=== PATIENT | male | born 1960 ===

== ENCOUNTER 2025-07-21 02:37 | Emergency (ER) | payer BC, MEDICARE, SELFPAY ==
--- OUTSIDE RECORDS SUMMARY | 2025-06-29 10:46 | XMS_ITS | Encounter Summary ---
Author Organization [facility] Address [address] [place] [address] Care Team Providers Care Commercial Loan Closer Name Role Phone Jax Bennett M.D. Primary Care arielle Encounter Details Date Type Department Care Team (Latest Contact Info) Description 06/29/2025 10:46 AM CDT - 06/29/2025 11:59 PM CDT Hospital Encounter Department of Laboratory Medicine in [place], [place] [address] [phone] Rand Goodwin, DANILOS, P.A.-C., P.A. 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 0 atorvastatin (Lipitor) 80 mg tabletIndications: Hyperlipidemia Mixed Take 1 tablet (80 mg total) by mouth daily. 90 tablet 3 5 04/02/20 26 blood sugar diagnostic stripsIndications: Compressor Assembler Use Of Insulin Active ([facility]),Diabetes Mellitus Type 1 Hyperglycemia ([facility]) USE 1 STRIP TO CHECK GLUCOSE THREE TIMES DAILY 300 each 1 2 blood-glucose meter,continuous (FreeStyle Tray 3 Met[place])Indications :Diabetes Mellitus Type 2 With Diabetic Chronic Kidney Disease ([facility]),Compressor Assembler Use Of Insulin Active ([facility]) 1 each (1 Device total) as directed. 1 each 5 blood-glucose sensor (FreeStyle Tray 3 Plus Sensor) deviceIndications: Diabetes Mellitus Type 2 With Diabetic Chronic Kidney Disease ([facility]),Senior Care Use Of Insulin Active ([facility]) 1 each (1 Device total) every 15 [...] Type 2 With Diabetic Chronic Kidney Disease (HCC),Senior Care Use Of Insulin Active (HCC) Inject 68 [...] Type 2 With Diabetic Chronic Kidney Disease (HCC),Senior Care Use Of Insulin Active ([facility]) INJECT 28 UNITS SUBCUTANEOUSLY THREE TIMES DAILY 5-10 MINUTES BEFORE MEALS 30 mL 5 07/07/20 25 documented as of this encounter Plan of Treatment Upcoming Encounters Date Type Department Care Team (Late st Contact Info) Description 07/22/2025 9:30 AM CDT Appointment Department of Radiology in [place], [place] [address] [place] [phone] Jax Bennett M.B.B.S., [place]iko [address] [place] [phone] Discharge Disposition: Home or Self Care 08/25/2025 2:00 PM CDT Office Visit Department of Endocrinology in [place], [place] [address] [phone] Rand Pop [facility], P.A.-C., P.A. [address], [place] [phone] documented as of this encounter Procedures Procedure [...] M.D. LAB BLOOD ADD-O N Final Result [facility] [address] [place] [address], [facility] OWAT [facility] [place] [address] [place] [address] * (ABNORMAL) Lipid Panel (06/29/2025 10:54 AM [...] ----ADDITIONAL INFORMATION---- LDL cholesterol calculated using the Car/NIH equation. Cholesterol, HDL 37(L) >=40 mg/dL 06/29/2025 [...] P.A.-C., P.A. LAB BLOOD ADD-ON Final Result [facility] [address] [place] [address], [place] OW[place] [facility] in [place] [address] [place] [address] * (ABNORMAL) Basic Metabolic Panel (06/29/2025 10:54 [...] AM CDT 06/29/2025 10:56 AM CDT [facility].A. LAB BLOOD ADD-ON Final Result [facility] [address] [place] [address], [facility] OWAT [facility] [place] [facility] [place] [address] [place] [address] * (ABNORMAL) Hemoglobin A1c (06/29/2025 10:54 AM [...] AM CDT 06/29/2025 10:56 AM CDT Rand DIAMOND, P.A.-C., P.A. LAB BLOOD ADD-ON Final Result [facility] [address] [place] [address], [facility] OWAT [facility] [place] [facility] [place] [address] [place] [address] documented in this encounter Visit Diagnoses Diagnosis [...] documented as of this encounter Care Teams Commercial Loan Closer Relationship Specialty Start Date End Date Jax Bennett M.B.B.S., MMary Jo. [address] [place] [phone] PCP - General Family Medicine 01/03/23 documented as of this encounter
--- OUTSIDE RECORDS SUMMARY | 2025-06-29 10:46 | XMS_ITS | Encounter Summary ---
Author Organization [facility] Address [address] [place] [address] Care Team Providers Care Travel Registered Nurse Pacu Name Role Phone Jax Bennett M.D. Primary Care P [facility] Encounter Details Date Type Department Care Team (Latest Contact Info) Description 06/29/2025 10:46 AM CDT - 06/29/2025 11:59 PM CDT Hospital Encounter Department of Laboratory Medicine in [place], [place] [address] [place] [phone] Jax Bennett M.B.B.S., MMary Jo. [address] [place] [address] [place] [phone] Diabetes Mellitus Type 1 Hyperglycemia (HCC) Discharge Disposition: Home or Self Care Social History Tobacco Use Types Packs/Day Years Used Date Smoking Tobacco: Former Smokeless Tobacco: Never Alcohol Use Standard Drinks/Week Comments Not Currently 0 (1 standard drink = 0.6 oz pur e alcohol) 2 beer every couple months. 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 0 atorvastatin (Lipitor) 80 mg tabletIndications: Hyperlipidemia Mixed Take 1 tablet (80 mg total) by mouth daily. 90 tablet 3 5 04/02/20 26 blood sugar diagnostic stripsIndications: Custodial Use Of Insulin Active ([facility]),Diabetes Mellitus Type 1 Hyperglycemia ([facility]) USE 1 STRIP TO CHECK GLUCOSE THREE TIMES DAILY 300 each 1 2 blood-glucose meter,continuous (FreeStyle Tray 3 [place])Indications :Diabetes Mellitus Type 2 With Diabetic Chronic Kidney Disease ([facility]),Motorized Squad Commanding Officer Use Of Insulin Active ([facility]) 1 each (1 Device total) as directed. 1 each 5 blood-glucose sensor (FreeStyle Tray 3 Plus Sensor) deviceIndications: Diabetes Mellitus Type 2 With Diabetic Chronic Kidney Disease ([facility]),Motorized Squad Commanding Officer Use Of Insulin Active ([facility]) 1 each (1 Device total) every 15 [...] Type 2 With Diabetic Chronic Kidney Disease ([facility]),Custodial Use Of Insulin Active ([facility]) Inject 68 Units under the skin every [...] Type 2 With Diabetic Chronic Kidney Disease (HCC),Custodial Use Of Insulin Active (HCC) INJECT 28 UNITS SUBCUTANEOUSLY THREE TIMES DAILY 5-10 MINUTES BEFORE MEALS 30 mL 5 07/07/20 25 documented as of this encounter Plan of Treatment Upcoming Encounters Date Type Department Care Team (Late st Contact Info) Description 07/22/2025 9:30 AM CDT Appointment Department of Radiology in [address] [phone] Jax Bennett M.B.BИванSИван, M.Hunter [address] [place] [phone] Discharge Disposition: Home or Self Care 08/25/2025 2:00 PM CDT Office Visit Department of Endocrinology in [place], [place] [address] [phone] Rand Pop [facility], P.A.-C., P.A. [address] [phone] documented as of this encounter Procedures Procedure Name Priority Date/Time Associated Diagnosis Comments ALBUMIN, RANDOM, U Routine 06/29/2025 10 :51 AM CDT Diabetes Mellitus Type 1 Hyperglycemia (HCC) documented in this encounter Results * (ABNORMAL) Albumin, Random, Urine (06/29/2025 10:51 AM CDT) Microalbumin <12.0 mg/L 06/29/2025 11:44 AM CDT OWAT Comment:If clinically indica wendie, contact the lab for additional testing. Creatinine 16 mg/dL 06/29/2025 11:44 AM CDT [facility] Albumin/Creatinine Ratio <75(H) <17 mg/g 06/29/2025 11:44 AM CDT OW[facility] Comment: This ratio may not correspond with the reference range because one or both of the values used to calculate the ratio was above or below the quantification limits. Urine (Urine, Midstream) 06/29/2025 10:51 AM CDT 06/29/2025 11:06 AM CDT us Jax Hansen M.D. LAB URINE ORDER SHALINI Final Result Performing Organization Address City/State/[facility] Co de Phone Number [facility] [address], [place] [address], [facility] OWAT [facility] [place] [address], [place] [address] documented in this encounter Visit Diagnoses Diagnosis Diabetes Mellitus Type 1 Hyperglycemia (HCC) documented in this encounter Additional Health Concerns Assessment Noted Time PHQ-9 Depression Total Score: 0 03/07/20 17 4:21 PM CDT documented as of this encounter Care Teams Travel Registered Nurse Pacu Relationship Specialty Start Date End Date Jax Bennett M.B.B.S., M.D. [address] [place] [phone] PCP - General Family Medicine 01/03/23 documented as of this encounter
--- OUTSIDE RECORDS SUMMARY | 2025-06-30 14:30 | XMS_ITS | Encounter Summary ---
Author Organization [facility] Address [address] [place] [address] Care Team Providers Care Tree Surgeon Helper Name Role Phone Jax Bennett M.D. [facility] Reason for Referral * Outpatient (Routine) - Authorized Specialty Diagnoses / Procedures Referred By Matias easley Referred To Contact Endocrinology Diagnoses Diabetes Mellitus Type 2 With Diabetic Chronic Kidney Disease (HCC) Rand Pop MPAS, P.A.-C., P.A. [address] [phone] Phone: tel: fax: [facility] Referral ID Status Reason Start Date Expiration Date V isits Requested Visits Authorized [id number] Authorized 06/30/2025 12/30/2026 1 1 Scheduling Instructions 30 min face to face--> OK to use urgent slot * Medication Prior Authorization - Closed Specialty Diagnoses / Procedures Referred By Matias easley Referred To Contact Diagnoses Diabetes Mellitus Type 2 With Diabetic Chronic Kidney Disease (HCC) Rand Pop MPAS, P.A.-C., P.A. [address] [address] Phone: tel: fax: Referral ID Status Reason Start Date Expiration Date Visits Re quested Visits Authorized [id number] Closed 1 1 Reason for Visit * Reason Comments Diabetes * Outpatient (Routine) - Closed Specialty Diagnoses / Procedures Referred By Matias t Referred To Contact Endocrinology Diagnoses Diabetes Mellitus Type 2 With Diabetic Chronic Kidney Disease (HCC) Fpc Use Of Insulin Active (HCC) Rand Pop MPAS, P.A.-C., P.A. [address] [phone] Phone: tel: fax: [facility] Referral ID Status Reason Start Date Expiration Date Visits Re quested Visits Authorized [id number] Closed 02/10/2025 08/12/2026 1 1 Encounter Details Date Type Department Care Team (Latest Contact Info) Description 06/30/2025 2:30 PM CDT Office Visit Department of Endocrinology in [place], [place] [address] [phone] Rand Goodwin MPAS, P.A.-Betty., P.A. 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 - 06/30/2025 2:30 PM CDT Reduce Semglee insulin to 62 units once daily- every morning. For now, continue 25 units Novolog 10 minutes before eating. Change to Metformin XR to help reduce diarrhea. --> week 1: 1 tablet once daily; --> week 2: 2 tablets once daily; --> week 3: 3 tablets once daily; --> week 4: 4 tablets once daily. Schedule with Rand on 08/25 at [address] Bennett to review left leg pain. documented in this encounter Progress Notes * Rand Pop MPAS, P.A.-C., P.A. - 06/30/2025 2:30 PM CDT SUBJECTIVE CHIEF COMPLAINT Chief Complaint Patient presents with Diabetes HISTORY OF PRESENT ILLNESS Patient presents today for a evaluation and treatment of diabetes mellitus type 2. - Date of dx: 2005 - Family history of diabetes: 2 brothers with diabetes; mother- diabetes - previously seen by Dr. Barcenas with an endocrinology on 06/06/2023. --> history of being diagnosed as a type 1 insulin-requiring diabetic, however there is no clinical evidence to support this diagnosis. Diagnosis modify to type 2 diabetes. Lab Results Component Value Date HGBA1C 8.3 (H) 06/29/2025 Diabetes related medication: - Metformin 1000 mg twice daily- occ diarrhea-occurs at least twice weekly. - NovoLog insulin- 25 units before meals; - Semglee insulin (insulin glargine-yfgn)- 68 units in the morning- improved compliance. - Jardiance 10 mg once daily. Questions if he will be able to continue to take this after intermediate secondary to cost, and limited income. - Patient had previously been on: Jardiance- stopped r/t cost. - History of pancreatitis: none. Lab Results Component Value Date CHOL 187 06/29/2025 Lab Results Component Value Date HDL 37 (L) 06/29/2025 Lab Results Component Value Date LDLCALC 98 06/29/2025 Lab Results Component Value Date TRIG 305 (H) 06/29/2025 Lab Results Component Value Date TTLCHOLHDLRT 4.00 03/06/2017 - History of pancreatic cancer: none. - History of medullary thyroid cancer: self: none; family: none. - History of MEN (multiple endocrine neoplasia-2): none. - History of recurrent UTIs: none. Blood glucose monitoring: - Frequency: Tray 3 - 14 day review- reader - CGM use: 94% - avg b mg/dL; - GMI: 8.7%; TIME IN RANGE: - high: 39% - in range: 57%; - low: 4%. Blood glucose patterns: - Some postprandial hypoglycemia -Occurring more frequently while at work. Hypoglycemia: - Hypoglycemia: yes. Frequency of hypoglycemia: 0% over past 2 weeks. - Patient does have symptoms of hypoglycemia. - Symptoms of hypoglycemia include: weak. - Hypoglycemic treatment: juice/food. - Glucagon available: None. - History of hypoglycemia that needed treatment assistance: never. Complication/Comorbidity management: - Complications: CKD, retinopathy, cataracts. Microalbuminuria. - Aspirin therapy: 81 mg aspirin. - Statin therapy: atorvastatin. - CELIA/Arb therapy: CELIA inhibitor-lisinopril. - Last diabetic eye exam: 03/05/2025- mild retinopathy and cataracts - Last Diabetic foot exam/ Monofilament: 04/02/2025- with PCP. - Daily Self Foot Exam: no. Patient has not noted any signs of erythema or ulceration. he has not had any numbness in his feet that he is aware of. - Patient describes his mood as stable. Social history: - Patient does not use tobacco products. - Alcohol intake: none. - Last Certified Oil And Gas Drafter Visit: 04/16/2024. - Last Cut Out Marker Visit: 05/21/2023. Current Diet: 3 meals daily. - breakfast is at 9:30 a.m.; lunch at 4 p.m.; supper between 6-7 p.m. - Beverage intake: diet pepsi; water. Current Exercise: work- walks all day. Work: [employer]: 3 a.m.-3 p.m. 5 days weekly Retiring when turns 65. Retiring as of tomorrow, 07/01/2025. Sleep: 8 p.m. to 2 a.m. Marital status: . passed 09/2022. - no biological children. MEDICATIONS Current Outpatient Medications Medication Sig aspirin [address] tablet Take 1 tablet by mouth daily. atorvastatin (Lipitor) 80 mg tablet Take 1 tablet (80 mg total) by mouth daily. blood sugar diagnostic strips USE 1 STRIP TO CHECK GLUCOSE THREE TIMES DAILY blood-glucose meter,continuous (FreeStyle Tray 3 [place]) 1 each (1 Device total) as directed. blood-glucose sensor (FreeStyle Tray 3 Plus Sensor) device 1 each (1 Device total) every 15 (fifteen) days empagliflozin (Jardiance) 10 mg tablet Take 1 tablet (10 mg total) by mouth daily before morning meal Indications: decreased kidney function, type 2 diabetes mellitus. hydroCHLOROthiazide 12.5 mg tablet Take 1 tablet (12.5 mg total) by mouth daily. insulin glargine-yfgn (Semglee,insulin glarg-yfgn,Pen) 100 unit/mL (3 mL) pen Inject 62 Units underthe skin every morning. lisinopriL 20 mg tablet Take 1 tablet (20 mg total) by mouth daily. miscellaneous medical supply kit NovoFine 30 Disposabl NDL See Instructions, Inject 4 times daily; E10.65; Z79.4, 150 each, 3 Refill(s) NovoLOG Flexpen U-100 Insulin 100 unit/mL (3 mL) pen INJECT 28 UNITS SUBCUTANEOUSLY THREE TIMES DAILY 5-10 MINUTES BEFORE MEALS tadalafiL (CIALIS) 10 mg tablet Take 1 tablet (10 mg total) by mouth daily as needed for erectile dysfunction. metFORMIN XR (Glucophage-XR) 500 mg 24 hr tablet Take 4 tablets (2,000 mg total) by mouth daily with morning meal. Week 1: take 1 tablet daily; Week 2: take 2 tablets daily; Week 3: take 3 tablets daily; Week 4: take 4 tablets daily. REVIEW OF SYSTEMS Skin: - Negative for skin rash. Eyes: - Negative for visual problems. Gastrointestinal: - Negative for abdominal (belly) pain or cramping, diarrhea, nausea and vomiting. Neurological: - Negative for numbness or shooting pain in hands, arms, legs, or feet. HISTORY REVIEW: The following portions of the patient's history were reviewed: allergies, current medications, family history, social history, medical history, surgical history and problem list OBJECTIVE PHYSICAL EXAM BP 130/77 (BP Location: Right arm, Patient Position: Sitting, Cuff Size: Regular) Pulse 66 Wt 75.9 kg BMI 26.20 kg/m?? GENERAL: Well developed, well nourished. No apparent distress. Appearance, behavior, and speech areappropriate. SKIN: No rash on exposed skin. MUSCULOSKELETAL: Gait normal. NEUROLOGICAL: Mental Status: Alert and oriented times 3, relaxed, and cooperative. Normal affect. DIAGNOSTICS Wt Readings from Last 3 Encounters: 06/30/25 75.9 kg 04/02/25 74.1 kg 02/10/25 79 kg Most Recent Diabetic Monitoring Labs: Last A1c: Lab Results Component Value Date HGBA1C 8.3 (H) 06/29/2025 Last urine microalbumin: Lab Results Component Value Date UMCROALBCONC <12.0 06/29/2025 CREATININEUR 16 06/29/2025 ALBCREARATIO <75 (H) 06/29/2025 Last lipid panel: Lab Results Component Value Date CHOL 187 06/29/2025 Lab Results Component Value Date HDL 37 (L) 06/29/2025 Lab Results Component Value Date LDLCALC 98 06/29/2025 Lab Results Component Value Date TRIG 305 (H) 06/29/2025 Lab Results Component Value Date TTLCHOLHDLRT 4.00 03/06/2017 Last Creatinine: Lab Results Component Value Date CREATININE 1.13 06/29/2025 Lab Results Component Value Date EGFR 72 06/29/2025 EGFRNONBLKAA 74 06/26/2021 EGFRBLKAA 85 06/26/2021 ASSESSMENT / PLAN #1 Diabetes Mellitus Type 2 With Diabetic Chronic Kidney Disease (HCC) - metFORMIN XR (Glucophage-XR) 500 mg 24 hr tablet; Take 4 tablets (2,000 mg total) by mouth daily with morning meal. 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 - patient is now taking basal insulin in the morning, and notes increased compliance. - Some overnight hypoglycemia, consequently will reduce basal insulin dose. - Patient will be retiring as of tomorrow, 07/01/2025. Anticipate significant change in schedule as well as eating habits. No change to NovoLog dosing at present time, but will see patient back in approximately 6-8 weeks to review glycemic control. At that time anticipate need to modify insulin doses given change in lifestyle. - Currently taking Jardiance 10 mg daily, however patient anticipates discontinuation secondary to high cost. - Advised 64-80 oz of water daily. - Stressed the importance of taking NovoLog prior to the start of his meals-aim for 5-15 minutes prior to eating. -patient notes diarrhea at least twice weekly, which he reports is problematic. Will change to metformin XR. -advised annual eye exams. Onychomycosis: - Podiatry consult previously placed. Plan: Reduce Semglee insulin to 62 units once daily- every morning. For now, continue 25 units Novolog 10 minutes before eating. Change to Metformin XR to help reduce diarrhea. --> week 1: 1 tablet once daily; --> week 2: 2 tablets once daily; --> week 3: 3 tablets once daily; --> week 4: 4 tablets once daily. Schedule with Rand on 08/25 at [address] Bennett to review left leg pain. - Self-monitoring of blood glucose: Continue FreeStyle Tray 3+ -Goal hemoglobin A1C: less than 7, without hypoglycemia. -Goal capillary plasma glucose: 90-140 fasting and preprandial; 2 hour peak postprandial blood glucose goal: Less than 140 mg/dL. -Frequency of hemoglobin A1C measurement: Every 3 months. Next due 09/29/2025. - Certified Oil And Gas Drafter visit: As needed. - Next Diabetic Follow-up Visit: 6-8 weeks. Tobacco cessation: Does not use tobacco products. Recommend daily physical activity with a goal of 30 minutes of moderate intensity activity most days per week. Consume a consistent well balanced diet and no intake of sweetened beverages. Inspect feet daily and have annual diabetic eye exam. Check lipid panel, creatinine, and urine microalbumin nisreen ually, more frequently if levels not at goal. Patient states he understands and agrees with current care plan. No learning barriers noted. No further questions today. Total time: 34 minutes with time also spent in chart review and lab review. DARA Marcos, P.A.-C., P.A. Patient Instructions Reduce Semglee insulin to 62 units once daily- every morning. For now, continue 25 units Novolog 10 minutes before eating. Change to Metformin XR to help reduce diarrhea. --> week 1: 1 tablet once daily; --> week 2: 2 tablets once daily; --> week 3: 3 tablets once daily; --> week 4: 4 tablets once daily. Schedule with Rand on 08/25 at [address] Bennett to review left leg pain. documented in this encounter Plan of Treatment Upcoming Encounters Date Type Department Care Team (Late st Contact Info) Description 07/22/2025 9:30 AM CDT Appointment Department of Radiology in [address] [phone] Jax Bennett M.B.B.S., M.D. [address] [place] [phone] Discharge Disposition: Home or Self Care 08/25/2025 2:00 PM CDT Office Visit Department of Endocrinology in [place], [place] [address] [phone] Rand Pop MPAS, Daniel., P.A. 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 [address] [place] [address] [place] [phone] PCP - General Family Medicine 01/03/23 documented as of this encounter
--- OUTSIDE RECORDS SUMMARY | 2025-07-21 02:39 | XMS_ITS | Encounter Summary ---
Author Organization [facility] Address [address] [place] [address] Care Team Providers Care Charge Coordinator Name Role Phone Jax Bennett M.D. [facility] Reason for Visit * Reason Comments Med Refill Encounter Details Date Type Department Care Team (Late st Contact Info) Description 07/01/2025 Refill Department of Endocrinology in [place], [place] [address] [phone] Rand Pop, [facility], P.A.-C., P.A. [address] [phone] Med Refill Social History Tobacco Use Types Packs/Day Years Used Date Smoking Tobacco: Former Smokeless Tobacco: Never Alcohol Use Standard Drinks/Week Comments Not Currently 0 (1 standard drink = 0.6 oz pur e alcohol) 2 beer every couple months. 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 [address] [place] [address] Discharge Disposition: Home or Self Care 08/25/2025 2:00 PM CDT Office Visit Department of Endocrinology in [place], [place] [address] [phone] Rand Pop MPAS, P.A.-C., P.A. [address] [phone] documented as of this encounter Visit Diagnoses Diagnosis Diabetes Mellitus Type 2 With Diabetic Chronic Kidney Disease (HCC) Tiger Machine Operator Use Of Insulin Active (HCC) documented in this encounter Additional Health Concerns Assessment Noted Time PHQ-9 Depression Total Score: 0 03/07/20 17 4:21 PM CDT documented as of this encounter Care Teams Charge Coordinator Relationship Specialty Start Date End Date Jax Bennett M.B.BИванSИван, M.Jennifer. [address] [facility] [place] [phone] PCP - General Family Medicine 01/03/23 documented as of this encounter
--- OUTSIDE RECORDS SUMMARY | 2025-07-21 02:39 | XMS_ITS ---
Author Organization [facility] Address [address] [place] [address] Phone [email or web address] Care Team Providers Care Music Researcher Name Role Phone Unavailable Primary Care Provider Unavailabl e General Care Management Program Status:Closed (Closed) Start date:07/09/2024 End date:07/06/2025 Close reason:Created in error Continued Care and Services Coordination
--- OUTSIDE RECORDS SUMMARY | 2025-07-21 02:39 | XMS_ITS | Encounter Summary ---
Author Organization [facility] Address [address] [place] [address] Care Team Providers Care Legal Service Specialist Name Role Phone Jax Bennett M.D. [facility] Encounter Details Date Type Department Care Team (Late st Contact Info) Description 06/29/2025 Results Follow-Up [facility], Second Floor [address] [place] [address] Jax Bennett M.B.B.S., M.D. [address] [facility] [place] [phone] Albumin, Random, Urine Social History Tobacco Use Types Packs/Day Years Used Date Smoking Tobacco: Former Smokeless Tobacco: Never Alcohol Use Standard Drinks/Week Comments Not Currently 0 (1 standard drink = 0.6 oz pur e alcohol) 2 beer every couple months. 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 Patient is on lisinopril which is appropriate treatment. The goal be better blood sugar control. Please continue with lisinopril. documented in this encounter Plan of Treatment Upcoming Encounters Date Type Department Care Team (Late st Contact Info) Description 07/22/2025 9:30 AM CDT Appointment Department of Radiology in [place], [place] [address] [place] [address] Jax Bennett M.B.B.S., M.D. [address] [place] [address] Discharge Disposition: Home or Self Care 08/25/2025 2:00 PM CDT Office Visit Department of Endocrinology in [place], [place] [address] [phone] Rand Pop, [facility] [address] [phone] documented as of this encounter Visit Diagnoses Not on filedocumented in this encounter Additional Health Concerns Assessment Noted Time PHQ-9 Depression Total Score: 0 03/07/20 17 4:21 PM CDT documented as of this encounter Care Teams Legal Service Specialist Relationship Specialty Start Date End Date Jax Bennett M.B.B.S., M.D. [address] [place] [phone] PCP - General Family Medicine 01/03/23 documented as of this encounter
--- OUTSIDE RECORDS SUMMARY | 2025-07-21 02:39 | XMS_ITS | Clinical Summary ---
Author Organization [facility] Address [address] [place] [id number] Phone [email or web address] Care Team Providers Care Bridal Stylist Sales Consultant Name Role Phone Unavailable Primary Care Provider Unavailabl e Social History Tobacco Use Types Packs/Day Years Used Date Smoking Tobacco: Never Assessed Stress Answer Date Recorded Stress in your Life Not on file 10/07/2024 Dealing with Stress 3 10/07/2024 Sex and Gender Information Value Date Recorded Sex Assigned at Not on file Legal Sex Male 9:50 AM CDT Gender Identity Not on file Sexual Orientation Not on file Plan of Treatment Not on file
--- OUTSIDE RECORDS SUMMARY | 2025-07-21 02:39 | XMS_ITS | Encounter Summary ---
Author Organization [facility] Address [address] [place] [address] Care Team Providers Care Glass Lathe Operator Name Role Phone Jax Bennett M.D. [facility] Reason for Referral * Outpatient (Routine) - Authorized Specialty Diagnoses / Procedures Referred By Matias easley Referred To Contact Diagnoses Screening Abdominal Aortic Aneurysm Procedures US Aorta AAA Screening Jax Bennett M.B.B.SJuan Oates [address] [place] [address] Phone: tel: fax: [facility] Region Referral ID Status Reason Start Date Expiration Date V isits Requested Visits Authorized [id number] Authorized 07/06/2025 10/06/2026 1 1 Encounter Details Date Type Department Care Team (Late st Contact Info) Description 07/06/2025 Orders Only [facility] Jax Bennett M.B.B.SИван, Juan [address] [place] [address] Screening Abdominal Aortic Aneurysm Social History Tobacco Use Types Packs/Day Years Used Date Smoking Tobacco: Former Smokeless Tobacco: Never Alcohol Use Standard Drinks/Week Comments Not Currently 0 (1 standard drink = 0.6 oz pur e alcohol) 2 beer every couple months. 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 [address] [phone] Scheduled Orders Name Type Priority Associated Diagnoses Orde r Schedule US Aorta AAA Screening Imaging RAD - Routine (most inpatients and all outpatients) Screening Abdominal Aortic Aneurysm Expected: 07/20/2025, Expires: 12/23/2025 documented as of this encounter Visit Diagnoses Diagnosis Screening Abdominal Aortic Aneurysm documented in this encounter Additional Health Concerns Assessment Noted Time PHQ-9 Depression Total Score: 0 03/07/20 17 4:21 PM CDT documented as of this encounter Care Teams Glass Lathe Operator Relationship Specialty Start Date End Date Jax Bennett M.B.B.SИван, [place] [address] [place] [phone] PCP - General Family Medicine 01/03/23 documented as of this encounter
[2025-07-21 02:40] VITALS: BP 188/98; PULSE 91; RESP 18; TEMP 36.4; O2SAT 97; BMI 26.6
--- OUTSIDE RECORDS SUMMARY | 2025-07-21 02:40 | XMS_ITS | Clinical Summary ---
Author Organization [facility] Address [address] [place] [address] Care Team Providers Care Tree Shear Operator Name Role Phone Jax Bennett M.D. Primary Care P estelarick Source Comments Patient records contain information from all sites at [facility]. For routine questions regarding patient records, call [phone] during business hours, M-F 8:00 AM - 5:00 PM Central Time. Record requests for emergency care only can be directed to [phone] at any time.[facility] Allergies No known active allergies Medications aspirin [address] tablet Take 1 tablet by mouth daily. 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 18 tablet 3 024 Active blood-glucose meter,continuous (FreeStyle Tray 3 [place])Indicatio ns:Diabetes Mellitus Type 2 With Diabetic Chronic Kidney Disease (HCC),Penitentiary Use Of Insulin Active (HCC) 1 each (1 Device total) as directed. 1 each 025 Active blood-glucose sensor (FreeStyle Tray 3 Plus Sensor) deviceIndication s:Diabetes Mellitus Type 2 With Diabetic Chronic Kidney Disease (HCC),Penitentiary Use Of Insulin Active ([facility]) 1 each (1 Device total) every 15 (fifteen) days 6 each 3 2025 Active empagliflozin (Jardiance) 10 mg tabletIndication s:kidney disease with reduction in GFR,type 2 diabetes mellitus Take 1 tablet (10 mg total) by mouth daily before morning meal Indications: decreased kidney function, type 2 diabetes mellitus. 90 tablet 3 Active lisinopriL 20 mg tabletIndication s:Hypertensive Chronic Kidney Disease With Stage 1 Through Stage 4 Chronic Kidney Disease, Or Unspecified Chronic Kidney Disease,Hyperlip idemia Mixed Take 1 tablet (20 mg total) by mouth daily. 90 tablet 3 Active atorvastatin (Lipitor) 80 mg tabletIndication s:Hyperlipidemia Mixed Take 1 tablet (80 mg total) by mouth daily. 90 tablet 3 025 2025 Active hydroCHLOROthiaz gia 12.5 mg tabletIndication s:Hypertensive Chronic Kidney Disease With Stage 1 Through Stage 4 Chronic Kidney Disease, Or Unspecified Chronic Kidney Disease Take 1 tablet (12.5 mg total) by mouth daily. 90 tablet 3 Active metFORMIN XR (Glucophage-XR) 500 mg 24 hr tabletIndication s:Diabetes Mellitus Type 2 With Diabetic Chronic Kidney Disease (HCC) Take 4 tablets (2,000 mg total) by mouth daily with morning meal. Week 1: take 1 tablet daily; Week 2: take 2 tablets daily; Week 3: take 3 tablets daily; Week 4: take 4 tablets daily. 360 tablet 3 2025 Active insulin glargine-yfgn (Semglee,insulin glarg-yfgn,Pen) 100 unit/mL (3 mL) penIndications:D iabetes Mellitus Type 2 With Diabetic Chronic Kidney Disease (HCC),Penitentiary Use Of Insulin Active ([facility]) Inject 62 Units under the skin every morning. 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 180 tablet 3 024 2024 Discontinued(S gia effects) insulin glargine-yfgn (Semglee,insulin glarg-yfgn,Pen) 100 unit/mL (3 mL) penIndications:D iabetes Mellitus Type 2 With Diabetic Chronic Kidney Disease (HCC),Penitentiary Use Of Insulin Active ([facility]) Inject 68 Units under the skin every morning. 75 mL 3 025 2024 Discontinued(R eorder) NovoLOG Flexpen U-100 Insulin 100 unit/mL (3 mL) penIndications:D iabetes Mellitus Type 2 With Diabetic Chronic Kidney Disease (HCC),Penitentiary Use Of Insulin Active ([facility]) INJECT 28 UNITS SUBCUTANEOUSLY THREE TIMES DAILY 5-10 MINUTES BEFORE MEALS 30 mL 025 2024 Discontinued Active Problems Problem Noted Date Diagnosed Date Diabetes Mellitus Type 2 Wit h Unspecified Diabetic Retinopathy Without Macular Edema 06/30/2025 Diabetes Mellitus Type 2 Diabetic Cataract 06/30 Diabetes Mellitus Type 2 Wit h Diabetic Chronic Kidney Disease 05/06/2024 Assessment & Plan (04/02/2025 4:59 PM CDT): He is on insulin, metformin, and Jardiance. Blood glucose is monitored with a sensor at least three times daily. Current regimen is maintained due to cost concerns with increasing Jardiance. Emphasized a low carbohydrate diet and ensuring medication supply. - Continue current diabetes medication regimen - Emphasize low carbohydrate diet - Ensure adequate medication supply and instruct to notify if running low Orders: Family Medicine - General (clinic) Diabetes Mellitus Type 2 Hyperglycemia 3 Overview (06/06/2023): Type 2 diabetes (not Type 1); see endocrinology consult note from 06/06/2023 for details. Hypertensive Chronic Kidney Disease With Stage 1 Through Stage 4 Chronic Kidney Disease, Or Unspecified Chronic Kidney Disease 01/18/2023 Assessment & Plan (04/02/2025 4:59 PM CDT): Blood pressure was elevated. He has not taken lisinopril or hydrochlorothiazide for two months due to running out of medication. No home blood pressure monitoring is being done. Renewed prescriptions and advised resumption. - Renew lisinopril prescription - Renew hydrochlorothiazide prescription - Advise resumption of blood pressure medications Orders: Family Medicine - General ([facility]) lisinopriL 20 mg tablet; Take 1 tablet (20 mg total) by mouth daily. hydroCHLOROthiazide 12.5 mg tablet; Take 1 tablet (12.5 mg total) by mouth daily. Microalbuminuria 05/01/2022 Dysfunction Erectile Organic 03/07/2017 Hyperlipidemia Mixed 03/06/2017 Assessment & Plan (04/02/2025 4:59 PM CDT): He is on atorvastatin 80 mg with no reported muscle aches or weakness. - Continue atorvastatin 80 mg Orders: Family Medicine - General ([facility]) lisinopriL 20 mg tablet; Take 1 tablet (20 mg total) by mouth daily. atorvastatin (Lipitor) 80 mg tablet; Take 1 tablet (80 mg total) by mouth daily. Penitentiary Use Of Insulin Active 01/26/2016 Resolved Problems Problem Noted Date Diagnosed Date Resolved Date Diabetes Mellitus Type 1 Hyperglycemia 01/26/2016 06/06/2023 Encounters Date Type Department Care Team Description 07/06/2025 Orders Only [facility] Jax Bennett M.B.B.S., M.D. Screening Abdominal Aortic Aneurysm 07/01/2025 Refill Department of Endocrinology in [place], [place] [address] [phone] Rand Marmolejo MPAS, P.A.LindaC., P.A. Med Refill 06/30/2025 2:30 PM CDT Office Visit Department of Endocrinology in [place], [place] [address] [phone] Rand Marmolejo MPAS, P.Liana.-C., P.A. 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 Diabetes Mellitus Type 2 With Diabetic Chronic Kidney Disease (HCC); Hypertensive Chronic Kidney Disease With Stage 1 Through Stage 4 Chronic Kidney Disease, Or Unspecified Chronic Kidney Disease; Hyperlipidemia Mixed; Screening Examination Prostate Cancer Discharge Disposition: Home or Self Care 06/29/2025 10:46 AM CDT - 06/29/2025 11:59 PM CDT Hospital Encounter Department of Laboratory Medicine in [place], [place] [address] [place] [phone] Jax Bennett M.B.B.SИван, Juan Diabetes Mellitus Type 1 Hyperglycemia (HCC) Discharge Disposition: Home or Self Care 06/29/2025 Results Follow-Up [facility], Second Floor [address] [place] [address] Jax Bennett M.B.BJuan Rosen Albumin, Random, Urine 05/14/2025 Clinical Communication Department of Family Medicine, [facility], in [place], [place] [address] [facility] [place] [phone] Jax Bennett M.B.BJuan Rosen 05/11/2025 Results Follow-Up Department of Family Medicine, [facility], in [place], [place] [address] [facility] [place] [address] Jax Bennett M.B.Juan Mckeon - Sent Out Lab 05/07/2025 Refill Department of Endocrinology in [place], [place] [address] [place] [address] Rand Marmolejo MPAS, P.A.-C., P.A. Med Refill from Last 3 Months Immunizations Immunization Administration Dates Next Due H1N1 All Forms 10/16/2009 Influenza, Injectable, Quadrivalent 09/23/2018 Influenza, Seasonal, Injectable 08/08/2012 Influenza, Unspecified 09/17/2017,2015,02/20/2016,2014,09/15/2013,09/15/2012,08/27/2011,0 08/24/2010,10/16/2009 PCV20 01/18/2023 PPSV23 03/03/2010 SARS-COV-2 (COVID-19) - PFIZ ER BIVALENT TS(Discontinued)(12 YEARS OR OLDER) 01/18/2023 SARS-COV-2 (COVID-19) - PFIZ ER TS(Discontinued)(12 years or older) 05/14/2022 Tdap 06/12/2021,03/03/2010 influenza vaccine quad (FLUZONE/FLUARIX) (6 months and older)(PF) 01/18/2023 Family History Medical History Relation Name Comments Diabetes Brother Diabetes Mother Obesity Sister Relation Name Status Comments Brother Mother Sister Social History Tobacco Use Types Packs/Day Years Used Date Smoking Tobacco: Former Smokeless Tobacco: Never Tobacco Cessation:Counseling Given: Not Answered Alcohol Use Standard Drinks/Week Comments Not Currently 0 (1 standard drink = 0.6 oz pur e alcohol) 2 beer every couple months. 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 Gender Identity Male 04/02/2019 4:28 PM CDT Sexual Orientation Straight 04/02/2019 4: 28 PM CDT Last Filed Vital Signs Vital Sign Reading Time Taken Comments Blood Pressure 130/77 06/30/2025 2:19 PM CDT Pulse 66 06/30/2025 2:19 PM CDT Temperature 35.8 C (96.4 F) 04/02/2025 3:40 PM CDT Respiratory Rate 16 04/02/2025 3:40 PM CDT Oxygen Saturation - - Inhaled Oxygen Concentration - - Weight 75.9 kg (167 lb 5.3 oz) 06/30/2025 2:19 PM CDT Height 170.2 cm (5' 7.01) 04/02/2025 3 :40 PM CDT with shoes on Body Mass Index 26.2 04/02/2025 3:40 PM CDT Plan of Treatment Upcoming Encounters Date Type Department Care Team (Late st Contact Info) Description 07/22/2025 9:30 AM CDT Appointment Department of Radiology in [address] [phone] Jax Bennett M.B.BИванSИван, M.D. [address] [place] [phone] Discharge Disposition: Home or Self Care 08/25/2025 2:00 PM CDT Office Visit Department of Endocrinology in [place], [place] [address] [phone] Rand Pop, [facility], P.A.-C., P.A. [address] [phone] Health Maintenance Due Date Last Done Comments Abdominal Aortic Aneurysm (AAA) Screen 1960 CT Colonography 1960 Colonoscopy 1960 HIV Screening 1960 Hepatitis C Screening 1960 Zoster Vaccines (1 of 2) 2010 FIT 03/31/2019 03/31/2018 Hepatitis B Vaccines (1 of 3 - Risk 3-dose series) 2020 RSV vaccine - (32-36 weeks) or 60+ years (1 - Risk 60-74 years 1-dose series) 2020 COVID-19 Vaccine ( season) 2024 01/18/2023, 05/14/2022, 11/15/2021, Additional history exists Diabetes Education 04/16/2025 04/16/2024, 0 05/14/2022, 04/02/2019, Additional history exists Fall Risk Screen (Annual) 2025 Influenza Vaccine (#1) 2025 , 09/23/2018, 09/17/2017, Additional history exists Hemoglobin A1C 09/29/2025 06/29/2025, 01/30, 09/15/2024, Additional history exists Diabetic Eye Exam 03/04/2026 03/04/2025 (Pe rformed elsewhere), 12/13/2022 (Performed elsewhere), 02/18/2014 Diabetic Office Visit with Foot Exam 04/02/2026 04/02/2025, 04/02/2023, 05/14/2022, Additional history exists Visit: Chronic Disease, age 18+ 04/02/2026 04/02/2025, 04/02/2025 Creatinine Level (Kidney Function Test) 06/29/2026 06/29/2025, 09/15/2024, 02/01/2024, Additional history exists PSA: Prostate Cancer Screening 06/29/2026 06/29/2025 Potassium Level 06/29/2026 06/29/2025, 09/01, 02/01/2024, Additional history exists Sodium Level 06/29/2026 06/29/2025, 09/01, 02/01/2024, Additional history exists Urine Albumin 06/29/2026 06/29/2025, 01/31, 04/02/2023, Additional history exists Office Visit for Blood Pressure Check / Re-check 06/30/2026 06/30/2025 Cologuard 05/06/2028 05/06/2025 Colorectal Cancer Screening 05/06/2028 Lipid (Cholesterol) Screening 06/29/2030 06/29/2025, 02/01/2024, 06/26/2021, Additional history exists DTaP,Tdap,and Td Vaccines (3 - Td or Tdap) 06/12/2031 06/12/2021, 03/03/2010 Pneumococcal vaccine (50+ years) Completed 01/18/2023, 03/03/2010 Depression Screening (Annual PHQ-2) Completed 04/02/2025, 04/02/2025 IPV Vaccines Aged Out No longer eligi ble based on patient's age to complete this topic Procedures Procedure Name Priority Date/Time Associated Diagnosis Comments PROSTATE-SPECIFIC AG (PSA) SCRN, S Routine 06/29/2025 10:54 AM CDT Screening Examination Prostate Cancer LIPID PANEL, S Routine 06/29/2025 10:54 AM CDT Diabetes Mellitus Type 2 With Diabetic Chronic Kidney Disease (HCC) Hyperlipidemia Mixed BASIC METABOLIC PANEL, S/P Routine 06/29/2025 10:54 AM CDT Diabetes 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 LAB BLOOD ADD-ON Final Result [facility] [address] [place] [address], [facility] in [place] [address], [place] [address] * PSA (Prostate-Specific Antigen) Screen (06/29/2025 10:54 [...] M.D. LAB BLOOD ADD-O N Final Result Performing Organization Address [facility] de Phone Number [facility] [address] [place] [address], [place] [facility] [facility] in [place] [address] [place] [address] * (ABNORMAL) Hemoglobin A1c (06/29/2025 10:54 AM [...] P.A.-C., P.A. LAB BLOOD ADD-ON Final Result Performing Organization Address [facility] de Phone Number [facility] [address] [place] [address], [place] [facility] [facility] in [place] [address] [place] [address] * (ABNORMAL) Basic Metabolic Panel (06/29/2025 10:54 [...] P.A.-C., P.A. LAB BLOOD ADD-ON Final Result [facility] [address], [place] [address], [facility] in [place] [address], [place] [address] * (ABNORMAL) Albumin, Random, Urine (06/29/2025 10:51 [...] M.D. LAB URINE ORDER SHALINI Final Result [facility] [address] [place] [address], [facility] in [place] [address] [place] [address] * Cologuard - Sent Out Lab (05/06/2025 3:40 PM CDT) Result Negative Negative 05/11/2025 11:01 AM CDT EXLI Comment: The Cologuard (TM) test was performed on this specimen. NEGATIVE TEST RESULT. A negative Cologuard result indicates a low likelihood that a colorectal cancer (CRC) or advanced adenoma (adenomatous polyps with more advanced pre-malignant features) is present. The chance that a person with a negative Cologuard test has a colorectal cancer is less than 1 in 1500 (negative predictive value >99.9%) or has an advanced adenoma is less than 5.3% (negative predictive value 94.7%). These data are based on a prospective cross-sectional study of 10,000 individuals at average risk for colorectal cancer who were screened with both Cologuard and colonoscopy. (Jaylon Cheung al, N Engl J Med 2014;370(14):8884-9334) The normal value (reference range) for this assay is negative. COLOGUARD RE-SCREENING RECOMMENDATION: Periodic colorectal cancer screening is an important part of preventive healthcare for asymptomatic individuals at average risk for colorectal cancer. Following a negative Cologuard result, the [place] [employer] Society and U.S. Multi-Society Task Force screening guidelines recommend a Cologuard re-screening interval of 3 years. References: [place] [employer] Guideline for Colorectal Cancer Screening: https://www.cancer.org/cancer/lnjsb-vnikyk-sgiauc/detection- diagnosis-staging/acs-recommendations.html.; Fernie DK, Marlene CR, Key GautamK, Colorectal Cancer Screening: Recommendations for Physicians and Patients from the U.S. Multi-Society Task Force on Colorectal Cancer Screening , Am J Gastroenterology 2017; 112:0155-6764. TEST DESCRIPTION: Composite algorithmic analysis of stool DNA-biomarkers with hemoglobin immunoassay. Quantitative values of individual biomarkers are not reportable and are not associated with individual biomarker result reference ranges. Cologuard is intended for colorectal cancer screening of adults of either sex, 45 years or older, who are at average-risk for colorectal cancer (CRC). Cologuard has been approved for use by the U.S. FDA. The performance of Cologuard was established in a cross sectional study of average-risk adults aged 50-84. Cologuard performance in patients ages 45 to 49 years was estimated by sub-group analysis of near-age groups. Colonoscopies performed for a positive result may find as the most clinically significant lesion: colorectal cancer [4.0%], advanced adenoma (including sessile serrated polyps greater than or equal to 1cm diameter) [20%] or non- advanced adenoma [31%]; or no colorectal neoplasia [45%]. These estimates are derived from a prospective cross-sectional screening study of 10,000 individuals at average risk for colorectal cancer who were screened with both Cologuard and colonoscopy. (Jaylon Cheung al, N Engl J Med 2014;370(14):0063-9259.) Cologuard may produce a false negative or false positive result (no colorectal cancer or precancerous polyp present at colonoscopy follow up). A negative Cologuard test result does not guarantee the absence of CRC or advanced adenoma (pre-cancer). The current Cologuard screening interval is every 3 years. ([place] [employer] and U.S. Multi-Society Task Force). Cologuard performance data in a 10,000 patient pivotal study using colonoscopy as the reference method can be accessed at the following location: www.BostInno.Dealo/results. Additional description of the Cologuard test process, warnings and precautions can be found at www.Mapkinrd.com. Stool (Stool) 05/06/2025 3:4 0 PM CDT 05/07/2025 9:29 AM CDT Jax Hansen M.D. LAB BODY FLUIDS AND STOOLS ORDERABLES Final Result [facility] [address] [place] [address] EXLI [facility] [address] [facility], [address] [place] [address] from Last 3 Months Insurance MEDICARE Care Teams Tree Shear Operator Relationship Specialty Start Date End Date Jax Bennett M.B.B.S., M.D. [address] [place] [address] Kay CantorHannaCASSIUS shetty [phone] PCP - General Family Medicine 01/03/23
--- NOTE | 2025-07-21 03:30 | ED_ITS ---
HPI - General Adult General Chief complaint: Jaw Injury/Pain Stated complaint: facial pain Time Seen by Provider: 07/21/25 02:44 Source: patient Mode of arrival: ambulatory Limitations: no limitations History of Present Illness HPI narrative: 65-year-old male with reported insulin-dependent diabetes and hypertension presents to the emergency department for evaluation of right maxillary area facial swelling with right upper jaw pain. He suspect this is secondary to a dental infection as he does have significant dental caries, known to be in this area. He actually has a dentist appointment scheduled for later today, he comes in in the wee hours. He reports that he is just unable to sleep and is miserable due to the pain. He has been taking Tylenol but it does not adequately treat the pain. He has not tried sleep aids. No fever. No new trauma or injury. Denies any immunocompromised status. No GI changes, no focal neurological changes, no vision changes. Is not on chronic pain medications, no prior similar ED visits. Does not appear as though he gets narcotics from any other source. He is not a great historian and reports that his medical care is through [facility] so I do not have access to those records. This sounds like he has insulin-dependent diabetes, hypertension. He takes lisinopril and insulin, he cannot remember his other medications. No known drug allergies. Nonsmoker. ROS is notable for the HEENT symptoms only, denies other HEENT, respiratory, skin, neurological or generalized changes. Related Data Allergies Allergy/AdvReac Type Severity Reaction Status Date / Time No Known Drug Allergies Allergy Verified 07/21/25 02:44 [facility] Social History Non-prescribed substance use: denies use Exam Const: Vital Signs, click to edit/add: Vital Signs - 24 hr 07/21/25 02:40 Temperature 97.5 F L Pulse Rate [Left P ulse Oximeter] 91 Respiratory Rate 18 Blood Pressure [Ri ght Upper Arm] 188/98 H Pulse Oximetry 97 Oxygen Delivery Me thod Room Air Documenting provider has reviewed patient's vital signs: yes Common normals: no apparent distress General appearance: cooperative and well kempt HENMT: Common normals: normocephalic and moist oral mucous membranes Head and scalp: normocephalic Other: Mild swelling to the low right maxillary area. No redness. Extensive dental caries including redness swelling and broken tooth in the area in question in the right upper maxillary jaw. Area affected is the 1st molar and 2nd premolar area. Tongue is normal, posterior pharynx is normal. Lips are acyanotic. Multiple other dental caries but none appear acutely infected besides the right upper maxillary area Eye: Common normals: PERRL and EOMs intact bilaterally General eye: normal appearance of both eyes Pupil: PERRL Neck & C-Spine: Common normals: full ROM and no lymphadenopathy General: normal visual inspection Resp: Common normals: normal respiratory effort Effort & inspection: able to speak in complete sentences Psych: Appearance: well kempt Attitude: engaged Activity/motor behavior: appropriate eye contact Attention/concentration: attention grossly intact Memory/cognition: memory grossly intact Insight: insight good Judgement: judgment good Skin: Common normals: no rashes or lesions noted General skin exam: no rashes or lesions noted Course Course ED Course: 65-year-old male with extensive dental caries presenting now with right facial swelling, increased tenderness suspicious for infection. Patient wants to be able to drive himself home, therefore will prescribe hydrocodone, 4 tablets given from [facility], use discussed. Counseled on use of ibuprofen 600 mg every 6 hours as well. Begin amoxicillin 1000 mg b.i.d. and keep dental appointment for later today. Alarm symptoms were reviewed that would warrant ED presentation or re-evaluation. He verbalized understanding and agreement. Vital Signs Vital signs: Initial Vital Signs Temperature 97.5 F L 07/21/25 02:40 Temperature Source Temporal Artery Scan 07/21/25 02:40 Pulse Rate 91 07/21/25 02:40 Pulse Rhythm Regular 07/21/25 02:40 Respiratory Rate 18 07/21/25 02:40 Blood Pressure 188/98 H 07/21/25 02:40 Blood Pressure Mean 128 H 07/21/25 02:40 Blood Pressure Position Sitting 07/21/25 02:40 Pulse Oximetry 97 07/21/25 02:40 Oxygen Delivery Method Room Air 07/21/25 02:40 Vital Signs Temperature 97.5 F L 07/21/25 02:40 Pulse Rate 91 07/21/25 02:40 Respiratory Rate 18 07/21/25 02:40 Blood Pressure 188/98 H 07/21/25 02:40 Pulse Oximetry 97 07/21/25 02:40 Oxygen Delivery Method Room Air 07/21/25 02:40 Temperature 97.5 F L 07/21/25 02:40 Pulse Rate 91 07/21/25 02:40 Respiratory Rate 18 07/21/25 02:40 Blood Pressure 188/98 H 07/21/25 02:40 Pulse Oximetry 97 07/21/25 02:40 Oxygen Delivery Method Room Air 07/21/25 02:40 Discharge Plan Discharge Clinical Impression: Dental infection Patient Disposition: Home, Self-Care Instructions: Dental Abscess (ED) Additional Instructions: I am concerned about that infected tooth in your upper right jaw. The facial swelling is certainly worrisome. I am glad that you have an appointment later today with the dentist. I would like to start you on antibiotics, amoxicillin. He will take 2 pills 2 times per day until gone. If the dentist changes her antibiotic or tells you to stop these, please follow their advice, they are the experts in that field. For pain, I recommend you take ibuprofen 600 mg every 6 hours. I have given you 4 tablets of hydrocodone to use if the pain is severe. We cannot give refills of this medication. If the dentist chooses to prescribe more, that is their choice. Remember that you may also use gentle sleep aids if the pain is bothersome at night like 10 mg of melatonin or 2 Benadryl as needed for sleep aid as well. He should return to the emergency department if you have high fevers, focal neurological changes or significant worsening of infection. Activity Level: No Restrictions Discharge Diet: Regular Stand Alone Forms: [employer] Info Instructions
== END 2025-07-21 03:34 | disposition home or self-care (01) ==
LOC: ED 03:29
PROVIDERS: Emergency Provider Family Medicine
DX: R22.0 Localized swelling, mass and lump, head (principal); K04.7 Periapical abscess without sinus
CPT/HCPCS: 99283

== ENCOUNTER 2025-08-05 16:10 | Emergency (ER) | payer OTHER, SELFPAY ==
--- OUTSIDE RECORDS SUMMARY | 2025-06-29 10:46 | XMS_ITS | Encounter Summary ---
Author Organization [facility] Address [address] [place] [address] Care Team Providers Care Baked Goods Stock Clerk Name Role Phone Jax Bennett M.D. Primary Care arielle Encounter Details Date Type Department Care Team (Latest Contact Info) Description 06/29/2025 10:46 AM CDT - 06/29/2025 11:59 PM CDT Hospital Encounter Department of Laboratory Medicine in [place], [place] [address] [phone] Rand Goodwin, DANILOS, P.A.-C., P.A. [address] [place] [phone] Diabetes Mellitus Type 2 With Diabetic Chronic Kidney Disease (HCC); Hypertensive Chronic Kidney Disease With Stage 1 Through Stage 4 Chronic Kidney Disease, Or Unspecified Chronic Kidney Disease; Hyperlipidemia Mixed; Screening Examination Prostate Cancer Discharge Disposition: Home or Self Care Social History Tobacco Use Types Packs/Day Years Used Date Smoking Tobacco: Former Smokeless Tobacco: Never Alcohol Use Standard Drinks/Week Comments Not Currently 0 (1 standard drink = 0.6 oz pur e alcohol) 2 beer every couple months. 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 0 atorvastatin (Lipitor) 80 mg tabletIndications: Hyperlipidemia Mixed Take 1 tablet (80 mg total) by mouth daily. 90 tablet 3 5 04/02/20 26 blood sugar diagnostic stripsIndications: Usp Use Of Insulin Active ([facility]),Diabetes Mellitus Type 1 Hyperglycemia ([facility]) USE 1 STRIP TO CHECK GLUCOSE THREE TIMES DAILY 300 each 1 2 blood-glucose meter,continuous (FreeStyle Tray 3 [place])Indications :Diabetes Mellitus Type 2 With Diabetic Chronic Kidney Disease ([facility]),Donkey Ride Operator Use Of Insulin Active ([facility]) 1 each (1 Device total) as directed. 1 each 5 blood-glucose sensor (FreeStyle Tray 3 Plus Sensor) deviceIndications: Diabetes Mellitus Type 2 With Diabetic Chronic Kidney Disease ([facility]),Donkey Ride Operator Use Of Insulin Active ([facility]) 1 each (1 Device total) every 15 (fifteen) days 6 each 3 5 02/11/20 26 empagliflozin (Jardiance) 10 mg tabletIndications: kidney disease with reduction in GFR,type 2 diabetes mellitus Take 1 tablet (10 mg total) by mouth daily before morning meal Indications: decreased kidney function, type 2 diabetes mellitus. 90 tablet 3 5 hydroCHLOROthiazid e 12.5 mg tabletIndications: Hypertensive Chronic Kidney Disease With Stage 1 Through Stage 4 Chronic Kidney Disease, Or Unspecified Chronic Kidney Disease Take 1 tablet (12.5 mg total) by mouth daily. 90 tablet 3 5 lisinopriL 20 mg tabletIndications: Hypertensive Chronic Kidney Disease With Stage 1 Through Stage 4 Chronic Kidney Disease, Or Unspecified Chronic Kidney Disease,Hyperlipid emia Mixed Take 1 tablet (20 mg total) by mouth daily. 90 tablet 3 5 miscellaneous medical supply kit NovoFine 30 Disposabl NDL See Instructions, Inject 4 times daily; E10.65; Z79.4, 150 each, 3 Refill(s) 7 tadalafiL (CIALIS) 10 mg tabletIndications: Dysfunction Erectile Organic Take 1 tablet (10 mg total) by mouth daily as needed for erectile dysfunction. 18 tablet 3 4 insulin glargine-yfgn (Semglee,insulin glarg-yfgn,Pen) 100 unit/mL (3 mL) penIndications:Dayna betes Mellitus Type 2 With Diabetic Chronic Kidney Disease (HCC),Usp Use Of Insulin Active (HCC) Inject 68 Units under the skin every morning. 75 mL 3 5 06/30/20 25 metFORMIN (Glucophage) 1,000 mg tabletIndications: Diabetes Mellitus Type 2 With Diabetic Chronic Kidney Disease (HCC) Take 1 tablet (1,000 mg total) by mouth 2 (two) times a day with meals. 180 tablet 3 4 06/30/20 25 NovoLOG Flexpen U-100 Insulin 100 unit/mL (3 mL) penIndications:Dayna betes Mellitus Type 2 With Diabetic Chronic Kidney Disease (HCC),Usp Use Of Insulin Active (HCC) INJECT 28 UNITS SUBCUTANEOUSLY THREE TIMES DAILY 5-10 MINUTES BEFORE MEALS 30 mL 5 07/07/20 25 documented as of this encounter Plan of Treatment Upcoming Encounters Date Type Department Care Team (Late st Contact Info) Description 08/25/2025 2:00 PM CDT Office Visit Department of Endocrinology in [place], [place] [address] [phone] Rand Pop [facility] [address] [phone] documented as of this encounter Procedures Procedure Name Priority Date/Time Associated Diagnosis Comments LIPID PANEL, S Routine 06/29/2025 10:54 AM CDT Diabetes Mellitus Type 2 With Diabetic Chronic Kidney Disease (HCC) Hyperlipidemia Mixed PROSTATE-SPECIFIC AG (PSA) SCRN, S Routine 06/29/2025 10:54 AM CDT Screening Examination Prostate Cancer HEMOGLOBIN A1C, B Routine 06/29/2025 10: 54 AM CDT Diabetes Mellitus Type 2 With Diabetic Chronic Kidney Disease (HCC) BASIC METABOLIC PANEL, S/P Routine 06/29/2025 10:54 AM CDT Diabetes Mellitus Type 2 With Diabetic Chronic Kidney Disease (HCC) Hypertensive Chronic Kidney Disease With Stage 1 Through Stage 4 Chronic Kidney Disease, Or Unspecified Chronic Kidney Disease documented in this encounter Results * PSA (Prostate-Specific Antigen) Screen (06/29/2025 10:54 AM CDT) Prostate-Specific Ag 1.5 <=4.5 ng/mL 06/29/2025 11:32 AM CDT OWAT Comment: ----ADDITIONAL INFORMATION---- The testing method is an electrochemiluminescence assay manufactured by [employer] and performed on the Modular or Julio Cesar system. Values obtained with different assay methods or kits may be different and cannot be used interchangeably. Test results cannot be interpreted as absolute evidence for the presence or absence of malignant disease. Blood (Blood, Venous) 06/29/2025 10:54 AM CDT 06/29/2025 10:56 AM CDT Jax Hansen M.D. LAB BLOOD ADD-O N Final Result [facility] [address] [place] [id number], [facility] OWAT [facility] in [place] [address] [place] [address] * (ABNORMAL) Lipid Panel (06/29/2025 10:54 AM CDT) Triglycerides 305(H) mg/dL 06/29/2025 11:26 AM CDT OWAT Comment: ----REFERENCE VALUE---- Normal: <150 mg/dL Borderline High: 150-199 mg/dL High: 200-499 mg/dL Very High: > or =500 mg/dL Cholesterol, Total 187 mg/dL 2024 11:26 AM CDT OW[facility] Comment: ----REFERENCE VALUE---- Desirable: < 200 mg/dL Borderline High: 200 - 239 mg/dL High: > or = 240 mg/dL Cholesterol, LDL, Calculated 98 mg/dL 06/29/2025 11:26 AM CDT OW[facility] Comment: ----REFERENCE VALUE---- Desirable: <100 mg/dL Above Desirable: 100-129 mg/dL Borderline High: 130-159 mg/dL High: 160-189 mg/dL Very High: >=190 mg/dL ----ADDITIONAL INFORMATION---- LDL cholesterol calculated using the Acr/NIH equation. Cholesterol, HDL 37(L) >=40 mg/dL 06/29/2025 11:26 AM CDT OW[facility] Cholesterol, Non-HDL, Calculated 150 mg/dL 06/29/2025 11:26 AM CDT [facility] Comment: ----REFERENCE VALUE---- Desirable: <130 mg/dL Above Desirable: 130-159 mg/dL Borderline High: 160-189 mg/dL High: 190-219 mg/dL Very High: > or =220 mg/dL Fasting (8 HR or more) Unknown 06/29/2025 10:54 AM CDT [facility] Blood (Blood, Venous) 06/29/2025 10:54 AM CDT 06/29/2025 10:56 AM CDT us Rand DIAMOND, P.A.-C., P.A. LAB BLOOD ADD-ON Final Result [facility] [address], [place] [address], [facility] OWAT [facility] [place] [address], [place] [address] * (ABNORMAL) Basic Metabolic Panel (06/29/2025 10:54 AM CDT) Potassium, P 4.2 3.6 - 5.2 mmol/L 06/29/2025 11:26 AM CDT OW[facility] Sodium, P 136 135 - 145 mmol/L 06/29/2025 11:26 AM CDT [facility] Chloride, P 101 98 - 107 mmol/L 06/29/2025 11:26 AM CDT [facility] Bicarbonate, P 27 22 - 29 mmol/L 06/29/2025 11:26 AM CDT [facility] Anion Gap, P 8 7 - 15 06/29/2025 11:26 AM CDT [facility] BUN (Blood Urea Nitrogen), P 18 8 - 24 mg/dL 06/29/2025 11:26 AM CDT [facility] Creatinine 1.13 0.74 - 1.35 mg/dL 06/29/2025 11:26 AM CDT OW[facility] Estimated GFR (eGFR) 72 >=60 mL/min/BSA 06/29/2025 11:26 AM CDT [facility] Comment: Estimated GFR calculated using the 2020 CKD_EPI creatinine equation. Calcium, Total, P 9.0 8.8 - 10.2 mg/dL 06/29/2025 11:26 AM CDT OW[facility] Glucose, P 176(H) 70 - 140 mg/dL 06/29/2025 11:26 AM CDT [facility] Blood (Blood, Venous) 06/29/2025 10:54 AM CDT 06/29/2025 10:56 AM CDT Rand DIAMOND P.A.-C., P.A. LAB BLOOD ADD-ON Final Result [facility] [address] [place] [address], [facility] OWAT [facility] [place] [address] [place] [address] * (ABNORMAL) Hemoglobin A1c (06/29/2025 10:54 AM CDT) Hemoglobin A1c, B 8.3(H) 4.2 - 5.6 % 06/29/2025 11:14 AM CDT OW[facility] Comment: Hemoglobin A1c values greater than or equal to 6.5 percent are diagnostic for diabetes mellitus. Diagnosis should be confirmed by repeat testing. In diabetic patients, HbA1c goals should be discussed with healthcare provider. Blood (Blood, Venous) 06/29/2025 10:54 AM CDT 06/29/2025 10:56 AM CDT Wolfgang Horton.LindaC., P.A. LAB BLOOD ADD-ON Final Result [facility] [address] [place] [address], [place] OWAT [facility] [place] [address] [place] [address] documented in this encounter Visit Diagnoses Diagnosis Diabetes Mellitus Type 2 With Diabetic Chronic Kidney Disease (HCC) Hypertensive Chronic Kidney Disease With Stage 1 Through Stage 4 Chronic Kidney Disease, Or Unspecified Chronic Kidney Disease Hyperlipidemia Mixed Screening Examination Prostate Cancer documented in this encounter Additional Health Concerns Assessment Noted Time PHQ-9 Depression Total Score: 0 03/07/20 17 4:21 PM CDT documented as of this encounter Care Teams Baked Goods Stock Clerk Relationship Specialty Start Date End Date Jax Bennett M.B.BИванSИван, M.Jennifer. [address] [place] [address] [place] [phone] PCP - General Family Medicine 01/03/23 documented as of this encounter
--- OUTSIDE RECORDS SUMMARY | 2025-06-29 10:46 | XMS_ITS | Encounter Summary ---
Author Organization [facility] Address [address] [place] [address] Care Team Providers Care Vice President Of Brand Management Name Role Phone Jax Bennett M.D. Primary Care P [facility] Encounter Details Date Type Department Care Team (Latest Contact Info) Description 06/29/2025 10:46 AM CDT - 06/29/2025 11:59 PM CDT Hospital Encounter Department of Laboratory Medicine in [place], [place] [address] [place] [phone] Jax Bennett M.B.B.S., MMary Jo. 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 0 atorvastatin (Lipitor) 80 mg tabletIndications: Hyperlipidemia Mixed Take 1 tablet (80 mg total) by mouth daily. 90 tablet 3 5 04/02/20 26 blood sugar diagnostic stripsIndications: Office Equipment Technician Use Of Insulin Active ([facility]),Diabetes Mellitus Type 1 Hyperglycemia ([facility]) USE 1 STRIP TO CHECK GLUCOSE THREE TIMES DAILY 300 each 1 2 blood-glucose meter,continuous (FreeStyle Tray 3 [place])Indications :Diabetes Mellitus Type 2 With Diabetic Chronic Kidney Disease ([facility]),Office Equipment Technician Use Of Insulin Active ([facility]) 1 each (1 Device total) as directed. 1 each 5 blood-glucose sensor (FreeStyle Tray 3 Plus Sensor) deviceIndications: Diabetes Mellitus Type 2 With Diabetic Chronic Kidney Disease ([facility]),Office Equipment Technician Use Of Insulin Active ([facility]) 1 each (1 Device total) every 15 [...] Type 2 With Diabetic Chronic Kidney Disease ([facility]),Office Equipment Technician Use Of Insulin Active ([facility]) Inject 68 Units under the skin every [...] Type 2 With Diabetic Chronic Kidney Disease (HCC),Office Equipment Technician Use Of Insulin Active (HCC) INJECT 28 UNITS SUBCUTANEOUSLY THREE TIMES DAILY 5-10 MINUTES BEFORE MEALS 30 mL 5 07/07/20 25 documented as of this encounter Plan of Treatment Upcoming Encounters Date Type Department Care Team (Late st Contact Info) Description 08/25/2025 2:00 PM CDT Office Visit Department of Endocrinology in [place], [place] [address] [phone] Rand Pop MPAS, P.A.-C., P.A. [address] [phone] documented as of this encounter Procedures Procedure [...] 10:51 AM CDT 06/29/2025 11:06 AM CDT Jax Hansen M.D. LAB URINE ORDER SHALINI Final Result Performing Organization Address City/State/[facility] Co de Phone Number - [facility] [address] [place] [address], [facility] OWAT [facility] [place] [facility] [place] [address] [place] [address] documented in this encounter Visit Diagnoses Diagnosis Diabetes Mellitus Type 1 Hyperglycemia (HCC) documented in this encounter Additional Health Concerns Assessment Noted Time PHQ-9 Depression Total Score: 0 03/07/20 17 4:21 PM CDT documented as of this encounter Care Teams Vice President Of Brand Management Relationship Specialty Start Date End Date Jax Bennett M.B.B.S., M.D. [address] [place] [phone] PCP - General Family Medicine 01/03/23 documented as of this encounter
--- OUTSIDE RECORDS SUMMARY | 2025-06-30 14:30 | XMS_ITS | Encounter Summary ---
Author Organization [facility] Address [address] [place] [address] Care Team Providers Care Meter Tester Polyphase Name Role Phone Jax Bennett M.D. [facility] Reason for Referral * Outpatient (Routine) - Authorized Specialty Diagnoses / Procedures Referred By Matias easley Referred To Contact Endocrinology Diagnoses Diabetes Mellitus Type 2 With Diabetic Chronic Kidney Disease (HCC) Rand Pop MPAS, P.A.-C., P.A. [address] [phone] Phone: tel: fax: [facility] Referral ID Status Reason Start Date Expiration Date V isits Requested Visits Authorized [id number] Authorized 06/30/2025 12/30/2026 1 1 Scheduling Instructions 30 min face to face--> OK to use urgent slot * Medication Prior Authorization - Closed Specialty Diagnoses / Procedures Referred By Matias easley Referred To Contact Diagnoses Diabetes Mellitus Type 2 With Diabetic Chronic Kidney Disease (HCC) Rand Pop MPAS, P.A.-C., P.A. [address] [phone] Phone: tel: fax: Referral ID Status Reason Start Date Expiration Date Visits Re quested Visits Authorized [id number] Closed 1 1 Reason for Visit * Reason Comments Diabetes * Outpatient (Routine) - Closed Specialty Diagnoses / Procedures Referred By Matias t Referred To Contact Endocrinology Diagnoses Diabetes Mellitus Type 2 With Diabetic Chronic Kidney Disease (HCC) Assisted Use Of Insulin Active (HCC) Rand Pop MPAS, P.A.-C., P.A. [address] [phone] Phone: tel: fax: [facility] Referral ID Status Reason Start Date Expiration Date Visits Re quested Visits Authorized [id number] Closed 02/10/2025 08/12/2026 1 1 Encounter Details Date Type Department Care Team (Latest Contact Info) Description 06/30/2025 2:30 PM CDT Office Visit Department of Endocrinology in [place], [place] [address] [phone] Rand Goodwin MPAS, P.A.-Betty., P.A. 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 - 06/30/2025 2:30 [...] able to continue to take this after halfway secondary to cost, and limited income. - [...] - Alcohol intake: none. - Last Certified White Sugar Syrup Operator Visit: 04/16/2024. - Last Analyst Business Analysis Visit: 05/21/2023. Current Diet: 3 meals daily. - breakfast is at 9:30 a.m.; lunch at 4 p.m.; supper between 6-7 p.m. - Beverage intake: diet pepsi; water. Current Exercise: work- walks all day. Work: [employer]: 3 a.m.-3 p.m. 5 days weekly [...] TIMES DAILY blood-glucose meter,continuous (FreeStyle Tray 3 [place]) 1 each (1 Device total) as directed. [...] visit (clinic); Future; Expected date: 08/25/2025 #2 Assisted Use Of Insulin Active (HCC) #3 Microalbuminuria [...] tomorrow, 07/01/2025. Anticipate significant change in schedule aswell as eating habits. No change to NovoLog [...] 3 months. Next due 09/29/2025. - Certified White Sugar Syrup Operator visit: As needed. - Next Diabetic Follow-up [...] CDT Office Visit Department of Endocrinology in [place], [place] [address] [phone] Rand Pop MPAS, P.A.-C., P.A. 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 [address] [place] [phone] PCP - General Family Medicine 01/03/23 documented as of this encounter
--- OUTSIDE RECORDS SUMMARY | 2025-07-22 09:27 | XMS_ITS | Encounter Summary ---
Author Organization [facility] Address [address] [place] [address] Care Team Providers Care Senior Safety Management Consultant Name Role Phone Jax Bennett M.D. Primary Care [facility] Reason for Referral * Outpatient (Routine) - Closed Specialty Diagnoses / Procedures Referred By Matias easley Referred To Contact Diagnoses Screening Abdominal Aortic Aneurysm Procedures US Aorta AAA Screening Jax Bennett M.B.B.SJuan Oates [address] [place] [address] Phone: tel: [facility]: [facility] Region Referral ID Status Reason Start Date Expiration Date Visits Re quested Visits Authorized [id number] Closed 07/06/2025 10/06/2026 1 1 Reason for Visit * Outpatient (Routine) - Closed Specialty Diagnoses / Procedures Referred By Matias easley Referred To Contact Diagnoses Screening Abdominal Aortic Aneurysm Procedures US Aorta AAA Screening Jax Bennett M.B.B.SJuan Oates [address] [place] [address] Phone: tel: fax: [facility] Region Referral ID Status Reason Start Date Expiration Date Visits Re quested Visits Authorized [id number] Closed 07/06/2025 10/06/2026 1 1 Encounter Details Date Type Department Care Team (Latest Contact Info) Description 07/22/2025 9:27 AM CDT - 07/22/2025 11:59 PM CDT Hospital Encounter Department of Radiology in [place], [place] [address] [place] [phone] Jax Bennett M.B.B.S., Reggie. [address] [facility] [place] [address] Screening Abdominal Aortic Aneurysm Discharge Disposition: Home or Self Care Social History Tobacco Use Types Packs/Day Years Used Date Smoking Tobacco: Former Smokeless Tobacco: Never Alcohol Use Standard Drinks/Week Comments Not Currently 0 (1 standard drink = 0.6 oz pur e alcohol) 2 beer every couple months. Sex and Gender Information Value Date Recorded Sex Assigned at Not on file Legal Sex Male 1:32 PM PLANNING RN Gender Identity Male 04/02/2019 4:28 PM CDT Sexual Orientation Straight 04/02/2019 4: 28 PM CDT documented as of this encounter Medications at Time of Discharge aspirin [address] tablet Take 1 tablet by mouth daily. 0 atorvastatin (Lipitor) 80 mg tabletIndications: Hyperlipidemia Mixed Take 1 tablet (80 mg total) by mouth daily. 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 1 each 5 blood-glucose sensor (FreeStyle Tray 3 Plus Sensor) deviceIndications: Diabetes Mellitus Type 2 With Diabetic Chronic Kidney Disease (HCC),Usp Use Of Insulin Active (HCC) 1 each (1 Device total) every 15 [...] by mouth daily. 90 tablet 3 5 insulin glargine-yfgn (Semglee,insulin glarg-yfgn,Pen) 100 unit/mL (3 mL) penIndications:Dayna betes Mellitus Type 2 With Diabetic Chronic Kidney Disease (HCC),Usp Use Of Insulin Active ([facility]) Inject 62 Units under the skin every morning. 75 mL 3 5 06/30/20 26 lisinopriL 20 mg tabletIndications: Hypertensive Chronic Kidney Disease With Stage 1 Through Stage 4 Chronic Kidney Disease, Or Unspecified Chronic Kidney Disease,Hyperlipid emia Mixed Take 1 tablet (20 mg total) by mouth daily. 90 tablet 3 5 metFORMIN XR (Glucophage-XR) 500 mg 24 hr tabletIndications: Diabetes Mellitus Type 2 With Diabetic Chronic Kidney Disease (HCC) Take 4 tablets (2,000 mg total) by mouth daily with morning meal. Week 1: take 1 tablet daily; Week 2: take 2 tablets daily; Week 3: take 3 tablets daily; Week 4: take 4 tablets daily. 360 tablet 3 5 06/30/20 26 miscellaneous medical supply kit NovoFine 30 Disposabl NDL See Instructions, Inject 4 times daily; E10.65; Z79.4, 150 each, 3 Refill(s) 7 NovoLOG Flexpen U-100 Insulin 100 unit/mL (3 mL) penIndications:Dayna betes Mellitus Type 2 With Diabetic Chronic Kidney Disease (HCC),Usp Use Of Insulin Active ([facility]) INJECT 28 UNITS SUBCUTANEOUSLY THREE TIMES DAILY 5-10 MINUTES BEFORE MEALS 30 mL 5 tadalafiL (CIALIS) 10 mg tabletIndications: Dysfunction Erectile Organic Take 1 tablet (10 mg total) by mouth daily as needed for erectile dysfunction. 18 tablet 3 4 documented as of this encounter Plan of Treatment Upcoming Encounters Date Type Department Care Team (Late st Contact Info) Description 08/25/2025 2:00 PM CDT Office Visit Department of Endocrinology in [place], [place] [address], [place] [address] Rand Pop MPAS, P.A.-C., P.A. [address] [place] [phone] documented as of this encounter Procedures Procedure Name Priority Date/Time Associated Diagnosis Comments US AORTA AAA SCREENING RAD - Routine (most inpatients and all outpatients) 07/22/2025 9:58 AM CDT Screening Abdominal Aortic Aneurysm documented in this encounter Results * US Aorta AAA Screening (07/22/2025 9:58 AM CDT) Anatomical Region Laterality Modality Abdomen, Pelvis, Ultrasound RST LOS, Ultrasound ARZ LOS, Ultrasound FLA LOS, Procedural, Vascular Interventional NWWI LOS N/A Ultrasound Impressions 07/22/2025 10:05 AM CDT Normal caliber abdominal aorta and proximal common iliac arteries. Narrative 07/22/2025 10:05 AM CDT EXAM: US AORTA AAA SCREENING COMPARISON: None FINDINGS: Proximal Aorta: AP - 2.6 cm Proximal Aorta: Trans - 2.6 cm Mid Aorta: AP - 2.0 cm Mid Aorta: Trans - 2.1 cm Distal Aorta: AP - 2.1 cm Distal Aorta: Trans - 1.6 cm Right PARK: AP - 1.3 cm Right PARK: Trans - 1.4 cm Left PARK: AP - 1.3 cm Left APRK: Trans - 1.3 cm Procedure Note Juice Garcia M.D. - 07/22/2025 EXAM: US AORTA AAA SCREENING COMPARISON: None FINDINGS: Proximal Aorta: AP - 2.6 cm Proximal Aorta: Trans - 2.6 cm Mid Aorta: AP - 2.0 cm Mid Aorta: Trans - 2.1 cm Distal Aorta: AP - 2.1 cm Distal Aorta: Trans - 1.6 cm Right PARK: AP - 1.3 cm Right PARK: Trans - 1.4 cm Left PARK: AP - 1.3 cm Left PARK: Trans - 1.3 cm IMPRESSION: Normal caliber abdominal aorta and proximal common iliac arteries. Jax Hansen M.D. [facility] Final Result documented in this encounter Visit Diagnoses Diagnosis Screening Abdominal Aortic Aneurysm documented in this encounter Additional Health Concerns Assessment Noted Time PHQ-9 Depression Total Score: 0 03/07/20 17 4:21 PM CDT documented as of this encounter Care Teams Senior Safety Management Consultant Relationship Specialty Start Date End Date Jax Bennett M.B.B.S., M.D. [address] [place] [phone] PCP - General Family Medicine 01/03/23 documented as of this encounter
--- NOTE | 2025-08-05 16:12 | ED.GENADULT ---
HPI - General Adult General Date Seen: 08/05/25 Chief complaint: Dental/Oral/Mouth Injury/Pain Stated complaint: tooth pain Time Seen by Provider: 08/05/25 16:11 History of Present Illness HPI narrative: 65-year-old gentleman with a history of insulin-dependent diabetes, hypertension who presents to the ER with dental pain and tooth infection. He was seen here 2 weeks ago on 07/21 because he had swelling in his right a she states maxillary area) and right upper jaw pain. Had been taking Tylenol for pain, but ineffective. Was started on amoxicillin your. Recommended ibuprofen 600 q.6. Given a prescription for 4 tablets of the Arapahoe. He did see his dentist for his previous right upper tooth infection. He completed his course of amoxicillin in the swelling and cheek is gone down. Has been doing well for the past couple of days any scheduled for a procedure on his tooth next Saturday. His nurses think he is getting a root canal. The patient gestures with his hand as if his dentist might just be pulling the tooth. He woke up this morning with pain and swelling affecting his right lower jaw and pain coming as from a right mandibular tooth. He is not sure which 1. Either a molar or premolar. It was not swollen or painful yesterday but it was swollen this morning. It has now gotten swollen on the right lower jaw. He is not having a fever. No swelling under his jaw. No trouble opening or closing his mouth. No trouble swallowing. No trouble breathing. His blood sugar has been running okay today. It is 177 on his CGM and has not been any higher than that today. Knowing that his face was swollen again, he thought he need to get back on antibiotics so came here to the ER Related Data Home Medications ?Medication ?Instructions ?Recorded ?Confirmed empagliflozin 10 mg tablet 10 mg PO DAILY 08/05/25 08/05/25 (Jardiance) hydrochlorothiazide 12.5 mg tablet 12.5 mg PO DAILY 08/05/25 08/05/25 lisinopril 20 mg tablet 20 mg PO DAILY 08/05/25 08/05/25 Allergies Allergy/AdvReac Type Severity Reaction Status Date / Time No Known Drug Allergies Allergy Verified 07/21/25 02:44 PFSH PFS Social History Non-prescribed substance use: denies use Exam Narrative: Exam Narrative: Constitutional: Appears well-developed and well-nourished. Alert. Conversant. Non toxic. HENT: Head: Atraumatic. Nose: Nose normal. Mouth/Throat: He does have swelling of the soft tissue of his right lower cheek lateral to the body of the mandible on the right side. I do not see or feel any submandibular swelling. No swelling of the sublingual tissues in his mouth. Tongue is normal. There is no palpable fluctuance of the gingival tissue or the cheek tissue to suggest a gingival abscess or buccal abscess.. Tonsillar pillars, uvula, and posterior oropharynx is normal. No sign of midline shift. The patient has generally poor dentition. He is status post extraction of multiple upper and lower teeth and has several teeth with dental caries and some are eroded down to the gum. On the right mandible he does have dental caries and tooth fracture/erosions of a tooth that I think is his right 1st molar (tooth 29) but other teeth have been extracted so it is hard to tell for sure which molar it is. Oral mucosa is clear and moist. no trismus. Pharynx normal. Tonsils symmetric. No tonsillar enlargement, erythema, or exudate. Eyes: Conjunctivae normal. EOM normal. Pupils equal, round, and reactive to light. No scleral icterus. Neck: Normal range of motion. Neck supple. No tracheal deviation present. Cardiovascular: Normal rate, regular rhythm. No gallop. Normal cap refill Pulmonary/Chest: Effort normal. No stridor. No respiratory distress. Abdominal: Soft. Bowel sounds normal. No distension. No mass. No tenderness. No rebound. No guarding. Musculoskeletal: RUE: Normal range of motion. No tenderness. No deformity LUE: Normal range of motion. No tenderness. No deformity RLE: Normal range of motion. No edema. No tenderness. No deformity LLE: Normal range of motion. No edema. No tenderness. No deformity Lymph: No cervical or submental adenopathy. Neurological: Alert and oriented to person, place, and time. Normal strength. CN II-VII intact. No sensory deficit. GCS eye subscore is 4. GCS verbal subscore is 5. GCS motor subscore is 6. Normal coordination Skin: Skin is warm and dry. No rash noted. No pallor. Normal capillary refill. Psychiatric: Normal mood. Normal affect. Const: Vital Signs, click to edit/add: Vital Signs - 24 hr 08/05/25 16:18 08/05/25 17:24 Temperature 98.7 F Pulse Rate [Pulse Oximeter] 90 92 Respiratory Rate 16 18 Blood Pressure [Ri ght Upper Arm] 217/102 H 183/104 H Pulse Oximetry 99 98 Oxygen Delivery Me thod Room Air Room Air Course Vital Signs Vital signs: Initial Vital Signs Temperature 98.7 F 08/05/25 16:18 Temperature Source Temporal Artery Scan 08/05/25 16:18 Pulse Rate 90 08/05/25 16:18 Pulse Rhythm Regular 08/05/25 16:18 Respiratory Rate 16 08/05/25 16:18 Blood Pressure 217/102 H 08/05/25 16:18 Blood Pressure Mean 140 H 08/05/25 16:18 Blood Pressure Position Sitting 08/05/25 16:18 Pulse Oximetry 99 08/05/25 16:18 Oxygen Delivery Method Room Air 08/05/25 16:18 Vital Signs Temperature 98.7 F 08/05/25 16:18 Pulse Rate 90 08/05/25 16:18 Respiratory Rate 16 08/05/25 16:18 Blood Pressure 217/102 H 08/05/25 16:18 Pulse Oximetry 99 08/05/25 16:18 Oxygen Delivery Method Room Air 08/05/25 16:18 Temperature 98.7 F 08/05/25 16:18 Pulse Rate 92 08/05/25 17:24 Respiratory Rate 18 08/05/25 17:24 Blood Pressure 183/104 H 08/05/25 17:24 Pulse Oximetry 98 08/05/25 17:24 Oxygen Delivery Method Room Air 08/05/25 17:24 Medical Decision Making MDM Narrative Medical decision making narrative: This patient presents with a tooth ache and swelling of his right cheek lateral to the right mandible. The differential diagnosis includes: cracked tooth syndrome, pulpitis, sub-apical abscess, amongst others. There is no abscess detected around the tooth amenable to incision and drainage. He does have facial swelling which I think indicates a facial cellulitis but I cannot appreciate any drainable abscess on my clinical exam. There is no evidence of buccinator/canine space infections, significant facial swelling, or Dameon's angina. There are no posterior pharyngeal space infections detected. Suspect pulpitis. Treatment with NSAID, , Augmentin. Also will give him a short prescription for Arapahoe. I do note he was here about 2 weeks ago for dental pain and got a prescription for Arapahoe. According to previous doctor's notes she indicated that we will not give refills for opiates for toothache PT for this patient. However this is a new dental infection. He has already seen his dentist and is set up for definitive surgery in a few days. I think it is reasonable to give him a short refill, 1 time for this dental infection. Follow up with a dentist/charter pilot in the coming days is indicated for further work up and treatment. Instructions for return to the ER were reviewed with the patient. Instymeds prescriptions for Arapahoe-8 tablets, Augmentin-20 tablets. Opiate precautions reviewed. Discharge Plan Discharge Clinical Impression: Cellulitis, face, Dental infection Patient Disposition: Home, Self-Care Condition: Stable Instructions: Cellulitis (ED), Toothache (ED) Additional Instructions: As we discussed, please start on the antibiotic this evening and take them twice a day until you see your dentist. Please call your dentist tomorrow morning and see you can move up your appointment (which is currently scheduled to happen on Saturday) to be seen tomorrow. If you have worsening facial swelling, if you feel a firm lump like an abscess, if you have swelling underneath her mouth or trouble opening her or chewing or swallowing, if you have trouble breathing, high fever, please return to the ER right away to be rechecked Use caution with prescription pain killer Arapahoe because it can cause dizziness, drowsiness, constipation, and can be addictive. Prescriptions: No Action lisinopril 20 mg tablet 20 mg PO DAILY hydrochlorothiazide 12.5 mg tablet 12.5 mg PO DAILY Jardiance 10 mg tablet 10 mg PO DAILY Follow Up/Referrals: Provider,Not a Local [Non-Staff, Family Practice] Stand Alone Forms: [facility] Medical Info Instructions
--- OUTSIDE RECORDS SUMMARY | 2025-08-05 16:12 | XMS_ITS ---
Author Organization [facility] Address [address] [place] [address] Phone [email or web address] Care Team Providers Care Housekeeping Director Name Role Phone Unavailable Primary Care Provider Unavailabl e General Care Management Program Status:Closed (Closed) Start date:07/09/2024 End date:07/06/2025 Close reason:Created in error Continued Care and Services Coordination
--- OUTSIDE RECORDS SUMMARY | 2025-08-05 16:12 | XMS_ITS | Clinical Summary ---
Author Organization [facility] Address [address] [place] [id number] Phone [email or web address] Care Team Providers Care Cool Roofing Installer Name Role Phone Unavailable Primary Care Provider [...]
--- OUTSIDE RECORDS SUMMARY | 2025-08-05 16:13 | XMS_ITS | Encounter Summary ---
Author Organization [facility] Address [address] [place] [address] Care Team Providers Care Provider Contracting Consultant Name Role Phone Jax Bennett M.D. [facility] Reason for Visit * Reason Comments Med Change Request Encounter Details Date Type Department Care Team (Late Contact Info) Description 08/04/2025 Refill Department of Endocrinology in [place], [place] [address] [place] [phone] Rand Pop MPAS, P.A.-C., P.A. [address] [phone] Med Change Request Social History Tobacco Use Types Packs/Day Years Used Date Smoking Tobacco: Former Smokeless Tobacco: Never Alcohol Use Standard Drinks/Week Comments Not Currently 0 (1 standard drink = 0.6 oz pur e alcohol) 2 beer every couple months. Sex and Gender Information Value Date Recorded Sex Assigned at Not on file Legal Sex Male 1:32 PM DIRECTOR OF EVENT MANAGEMENT Gender Identity Male 04/02/2019 4:28 PM CDT Sexual Orientation Straight 04/02/2019 4: 28 PM CDT documented as of this encounter Plan of Treatment Upcoming Encounters Date Type Department Care Team (Late Contact Info) Description 08/25/2025 2:00 PM CDT Office Visit Department of Endocrinology in [place], [place] [address] [place] [phone] Rand Pop MPAS, P.A.-C., P.A. [address], [place] [phone] documented as of this encounter Visit Diagnoses Diagnosis Diabetes Mellitus Type 2 With Diabetic Chronic Kidney Disease (HCC) Custodial Use Of Insulin Active (HCC) documented in this encounter Additional Health Concerns Assessment Noted Time PHQ-9 Depression Total Score: 0 03/07/20 17 4:21 PM CDT documented as of this encounter Care Teams Provider Contracting Consultant Relationship Specialty Start Date End Date Jax Bennett M.B.B.S., MMary Jo. [address] [place] [phone] PCP - General Family Medicine 01/03/23 documented as of this encounter
--- OUTSIDE RECORDS SUMMARY | 2025-08-05 16:13 | XMS_ITS | Encounter Summary ---
Author Organization [facility] Address [address] [place] [address] Care Team Providers Care Research Laboratory Technician Name Role Phone Jax Bennett M.D. [facility] Reason for Visit * Reason Onset Date Comments Results 07/27/2025 Encounter Details Date Type Department Care Team (Late st Contact Info) Description 07/27/2025 Results Follow-Up Department of Family Medicine, [facility], in [place], [place] [address] [place] [address] Jax Bennett M.B.B.S., M.D. [address] [place] [address] US Aorta AAA Screening Social History Tobacco Use Types Packs/Day Years Used Date Smoking Tobacco: Former Smokeless Tobacco: Never Alcohol Use Standard Drinks/Week Comments Not Currently 0 (1 standard drink = 0.6 oz pur e alcohol) 2 beer every couple months. 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 - 07/27/2025 7:43 AM CDT Results showed no significant abnormalities. documented in this encounter Plan of Treatment Upcoming Encounters Date Type Department Care Team (Late st Contact Info) Description 08/25/2025 2:00 PM CDT Office Visit Department of Endocrinology in [place], [place] [address] [place] [phone] Rand Pop, [facility], P.[facility].-C., P.A. [address] [place] [address] documented as of this encounter Visit Diagnoses Not on filedocumented in this encounter Additional Health Concerns Assessment Noted Time PHQ-9 Depression Total Score: 0 03/07/20 17 4:21 PM CDT documented as of this encounter Care Teams Research Laboratory Technician Relationship Specialty Start Date End Date Jax Bennett M.B.B.S., M.D. [address] [place] [phone] PCP - General Family Medicine 01/03/23 documented as of this encounter
--- OUTSIDE RECORDS SUMMARY | 2025-08-05 16:14 | XMS_ITS | Encounter Summary ---
Author Organization [facility] Address [address] [place] [address] Care Team Providers Care Sewing Machine Attachment Tester Name Role Phone Jax Bennett M.D. [facility] Reason for Visit * Reason Comments Med Refill Encounter Details Date Type Department Care Team (Late Contact Info) Description 07/01/2025 Refill Department of Endocrinology in [place], [place] [address] [place] [phone] Rand Pop MPAS, P.A.-C., P.A. [address] [phone] Med Refill Social History Tobacco Use Types Packs/Day Years Used Date Smoking Tobacco: Former Smokeless Tobacco: Never Alcohol Use Standard Drinks/Week Comments Not Currently 0 (1 standard drink = 0.6 oz pur e alcohol) 2 beer every couple months. 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 [address], [place] [address] documented as of this encounter Visit Diagnoses Diagnosis Diabetes Mellitus Type 2 With Diabetic Chronic Kidney Disease (HCC) Residential Use Of Insulin Active (HCC) documented in this encounter Additional Health Concerns Assessment Noted Time PHQ-9 Depression Total Score: 0 03/07/20 17 4:21 PM CDT documented as of this encounter Care Teams Sewing Machine Attachment Tester Relationship Specialty Start Date End Date Jax Bennett M.B.B.S., MMary Jo. [address] [place] [phone] PCP - General Family Medicine 01/03/23 documented as of this encounter
--- OUTSIDE RECORDS SUMMARY | 2025-08-05 16:14 | XMS_ITS | Encounter Summary ---
Author Organization [facility] Address [address] [place] [address] Care Team Providers Care Turner Machine Name Role Phone Jax Bennett M.D. [facility] Encounter Details Date Type Department Care Team (Late st Contact Info) Description 06/29/2025 Results Follow-Up [facility], Second Floor [address] [facility] [address] Jax Bennett M.B.B.S., M.D. [address] [facility] [place] [phone] Albumin, Random, Urine Social History Tobacco Use Types Packs/Day Years Used Date Smoking Tobacco: Former Smokeless Tobacco: Never Alcohol Use Standard Drinks/Week Comments Not Currently 0 (1 standard drink = 0.6 oz pur e alcohol) 2 beer every couple months. 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 [address] [place] [phone] documented as of this encounter Visit Diagnoses Not on filedocumented in this encounter Additional Health Concerns Assessment Noted Time PHQ-9 Depression Total Score: 0 03/07/20 17 4:21 PM CDT documented as of this encounter Care Teams Turner Machine Relationship Specialty Start Date End Date Jax Bennett M.B.B.S., M.D. [address] [place] [phone] PCP - General Family Medicine 01/03/23 documented as of this encounter
--- OUTSIDE RECORDS SUMMARY | 2025-08-05 16:14 | XMS_ITS | Encounter Summary ---
Author Organization [facility] Address [address] [place] [address] Care Team Providers Care Sales Representative Advertising Name Role Phone Jax Bennett M.D. Primary Care [facility] Reason for Referral * Outpatient (Routine) - Closed Specialty Diagnoses / Procedures Referred By Matias easley Referred To Contact Diagnoses Screening Abdominal Aortic Aneurysm Procedures US Aorta AAA Screening Jax Bennett M.B.BИванSJuna Oates [address] [place] [address] Phone: tel: fax: [facility] Referral ID Status Reason Start Date Expiration Date Visits Re quested Visits Authorized [id number] Closed 07/06/2025 10/06/2026 1 1 Encounter Details Date Type Department Care Team (Late st Contact Info) Description 07/06/2025 Orders Only [facility] PCP [facility] Jax Bennett M.B.B.SИван, Juan [address] [place] [address] Screening Abdominal Aortic Aneurysm Social History Tobacco Use Types Packs/Day Years Used Date Smoking Tobacco: Former Smokeless Tobacco: Never Alcohol Use Standard Drinks/Week Comments Not Currently 0 (1 standard drink = 0.6 oz pur e alcohol) 2 beer every couple months. 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 [address] [place] [address] documented as of this encounter Results * US Aorta AAA [...] cm Left PARK: Trans - 1.3 cm Procedure Note Juice [...] proximal common iliac arteries. Jax Hansen M.D. [facility] US PROCEDUR ES Final Result documented in this encounter Visit Diagnoses Diagnosis Screening Abdominal Aortic Aneurysm Screening Abdominal Aortic Aneurysm documented in this encounter Additional Health Concerns Assessment Noted Time PHQ-9 Depression Total Score: 0 03/07/20 17 4:21 PM CDT documented as of this encounter Care Teams Sales Representative Advertising Relationship Specialty Start Date End Date Jax Bennett M.B.B.S., M.D. [address] [place] [phone] PCP - General Family Medicine 01/03/23 documented as of this encounter
--- OUTSIDE RECORDS SUMMARY | 2025-08-05 16:14 | XMS_ITS | Clinical Summary ---
Author Organization [facility] Address [address] [place] [address] Care Team Providers Care Product Safety Lead Name Role Phone Jax Bennett M.D. Primary Care P estelarick Source Comments Patient records contain information from all sites at [facility]. For routine questions regarding patient records, call [phone] during business hours, M-F 8:00 AM - 5:00 PM Central Time. Record requests for emergency care only can be directed to [phone] at any time.[facility] Allergies No known active allergies Medications aspirin [address] tablet Take 1 tablet by mouth daily. 010 Active miscellaneous medical supply kit NovoFine 30 Disposabl NDL See Instructions, Inject 4 times daily; E10.65; Z79.4, 150 each, 3 Refill(s) 017 Active blood sugar diagnostic stripsIndication s:Smoking Tobacco Cutter Operator Use Of Insulin Active (HCC),Diabetes Mellitus Type 1 Hyperglycemia (HCC) USE 1 STRIP TO CHECK GLUCOSE THREE TIMES DAILY 300 each 1 022 Active tadalafiL (CIALIS) 10 mg tabletIndication s:Dysfunction Erectile Organic Take 1 tablet (10 mg total) by mouth daily as needed for erectile dysfunction. 18 tablet 3 024 Active blood-glucose meter,continuous (FreeStyle Tray 3 [place])Indicatio ns:Diabetes Mellitus Type 2 With Diabetic Chronic Kidney Disease (HCC),Smoking Tobacco Cutter Operator Use Of Insulin Active (HCC) 1 each (1 Device total) as directed. 1 each 025 Active blood-glucose sensor (FreeStyle Tray 3 Plus Sensor) deviceIndication s:Diabetes Mellitus Type 2 With Diabetic Chronic Kidney Disease (HCC),Retirement Use Of Insulin Active ([facility]) 1 each (1 Device total) every [...] Type 2 With Diabetic Chronic Kidney Disease (HCC),Retirement Use Of Insulin Active ([facility]) Inject 62 Units under the skin every morning. 75 mL 3 025 2025 Active NovoLOG Flexpen U-100 Insulin 100 unit/mL (3 mL) penIndications:D iabetes Mellitus Type 2 With Diabetic Chronic Kidney Disease (HCC),Smoking Tobacco Cutter Operator Use Of Insulin Active ([facility]) INJECT 28 UNITS SUBCUTANEOUSLY THREE TIMES DAILY 5-10 MINUTES BEFORE MEALS 30 mL 08/06/2 025 Active NovoLOG Flexpen U-100 Insulin 100 unit/mL (3 mL) penIndications:D iabetes Mellitus Type 2 With Diabetic Chronic Kidney Disease (HCC),Retirement Use Of Insulin Active (HCC) INJECT 28 [...] General (clinic) Diabetes Mellitus Type 2 Hyperglycemia Overview (06/06/2023): Type 2 diabetes (not Type [...] pressure medications Orders: Family Medicine - General (clinic) lisinopriL 20 mg tablet; Take 1 tablet [...] 80 mg Orders: Family Medicine - General (clinic) lisinopriL 20 mg tablet; Take 1 tablet (20 mg total) by mouth daily. atorvastatin (Lipitor) 80 mg tablet; Take 1 tablet (80 mg total) by mouth daily. Smoking Tobacco Cutter Operator Use Of Insulin Active 01/26/2016 Resolved Problems Problem Noted Date Diagnosed Date Resolved Date Diabetes Mellitus Type 1 Hyperglycemia 01/26/2016 06/06/2023 Encounters Date Type Department Care Team Description 08/04/2025 Refill Department of Endocrinology in [address] [phone] Rand Marmolejo MPAS, Gerson.A.-C., P.A. Med Change Request 07/27/2025 Results Follow-Up Department of Family Medicine, [facility], in [place], [place] [address] [place] [address] Jax Bennett M.B.B.S., M.D. US Aorta AAA Screening 07/22/2025 9:27 AM CDT - 07/22/2025 11:59 PM CDT Hospital Encounter Department of Radiology in [place], [place] [address] [place] [address] Jax Bennett M.B.B.S., M.D. Screening Abdominal Aortic Aneurysm Discharge Disposition: Home or Self Care 07/06/2025 Orders Only [facility] Jax Bennett M.B.B.S., M.D. Screening Abdominal Aortic Aneurysm 07/01/2025 Refill Department of Endocrinology in [place], [place] [address], [place] [address] Rand Marmolejo MPAS, P.A.-C., P.A. Med Refill 06/30/2025 2:30 PM CDT Office Visit Department of Endocrinology in [address] [phone] Rand Marmolejo MPAS, P.A.-C., P.A. 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 Diabetes Mellitus Type 2 With Diabetic Chronic Kidney Disease (HCC); Hypertensive Chronic Kidney Disease With Stage 1 Through Stage 4 Chronic Kidney Disease, Or Unspecified Chronic Kidney Disease; Hyperlipidemia Mixed; Screening Examination Prostate Cancer Discharge Disposition: Home or Self Care 06/29/2025 10:46 AM CDT - 06/29/2025 11:59 PM CDT Hospital Encounter Department of Laboratory Medicine in [address] [phone] Jax Bennett M.B.BJuan Rosen Diabetes Mellitus Type 1 Hyperglycemia (HCC) Discharge Disposition: Home or Self Care 06/29/2025 Results Follow-Up [facility], Second Floor [address] [facility] [place] [phone] Jax Bennett M.B.BJuan Rosen Albumin, Random, Urine 05/14/2025 Clinical Communication Department of Family Medicine, [facility], in [place], [place] [address] [place] [phone] WaribokJax valerio M.B.B.S., M.D. 05/11/2025 Results Follow-Up Department of Family Medicine, [facility], in [place], [place] [address] [facility] [place] [address] Jax Bennett M.B.B.S., M.D. Cologuard - Sent Out Lab 05/07/2025 Refill Department of Endocrinology in [place], [place] [address] [facility] [place] [address] [facility] Bergeron, [facility], P.A.-C., P.A. 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 [address] [phone] Health Maintenance Due Date Last Done Comments CT Colonography 1960 Colonoscopy 1960 HIV Screening [...] Depression Screening (Annual PHQ-2) Completed 04/02/2025, 04/02/2025 Abdominal Aortic Aneurysm (AAA) Screen Completed 07/22/2025 IPV Vaccines Aged Out No longer eligi ble based on patient's age to complete this topic Procedures Procedure Name Priority Date/Time Associated Diagnosis Comments US AORTA AAA SCREENING RAD - Routine (most inpatients and all outpatients) 07/22/2025 9:58 AM CDT Screening Abdominal Aortic Aneurysm PROSTATE-SPECIFIC AG (PSA) SCRN, S Routine 06/29/2025 [...] Disease (HCC) ALBUMIN, RANDOM, U Routine 06/29/2025 10:51 AM CDT Diabetes Mellitus Type 1 Hyperglycemia (HCC) COLOGUARD Routine 05/06/2025 3:40 PM CDT Screening Cancer Colon from Last 3 Months Results * US Aorta AAA Screening (07/22/2025 [...] proximal common iliac arteries. Jax Hansen M.D. [facility] US PROCEDUR ES Final Result * (ABNORMAL) Lipid Panel (06/29/2025 10:54 AM [...] BLOOD ADD-ON Final Result Performing Organization Address [facility] Co de Phone Number [facility] [address] [place] [address], [facility] in [place] [address] [place] [address] * PSA (Prostate-Specific Antigen) Screen (06/29/2025 10:54 [...] AM CDT 06/29/2025 10:56 AM CDT us Jax Hansen M.D. LAB BLOOD ADD-O N Final Result Performing Organization Address City/[facility]/ZIP Co de Phone Number [facility] [address] [place] [address], [facility] [place] [address], [place] [address] * (ABNORMAL) Hemoglobin A1c (06/29/2025 10:54 AM [...] BLOOD ADD-ON Final Result Performing Organization Address [facility] Co de Phone Number [facility] [address] [address], [facility] [place] [address] [address] * (ABNORMAL) Basic Metabolic Panel (06/29/2025 10:54 [...] P.A.-C., P.A. LAB BLOOD ADD-ON Final Result [facility] [address] [address], [facility] [place] [address] [address] * (ABNORMAL) Albumin, Random, Urine (06/29/2025 10:51 [...] CDT 06/29/2025 11:06 AM CDT us Jax I. Wariboko M.B.B.S., M.D. LAB URINE ORDER SHALINI Final Result [facility] [address] [place] [address], [place] [facility] [place] [address] [place] [address] * Cologuard - Sent Out Lab (05/06/2025 [...] screened with both Cologuard and colonoscopy. (Jaylon Rick. et al, N Engl J Med 2014;370(14):8673-5703) The normal value (reference range) for this assay is negative. COLOGUARD RE-SCREENING RECOMMENDATION: Periodic colorectal cancer screening is an important part of preventive healthcare for asymptomatic individuals at average risk for colorectal cancer. Following a negative Cologuard result, the [place] [employer] Society and U.S. Multi-Society Task Force screening guidelines recommend a Cologuard re-screening interval of 3 years. References: [place] [employer] Guideline for Colorectal Cancer Screening: https://www.cancer.org/cancer/vjwun-prnlcf-owzktr/detection- diagnosis-staging/acs-recommendations.html.; Fernie MORELAND, Marlene NEGRETE, Key MAY, Colorectal Cancer Screening: Recommendations for Physicians and Patients from the U.S. Multi-Society Task Force on Colorectal Cancer Screening , Am J Gastroenterology 2017; 112:6168-0756. TEST DESCRIPTION: Composite algorithmic analysis of stool [...] screened with both Cologuard and colonoscopy. (Jaylon Rick. et al, N Engl J Med 2014;370(14):8294-8513.) Cologuard may produce a false negative or false positive result (no colorectal cancer or precancerous polyp present at colonoscopy follow up). A negative Cologuard test result does not guarantee the absence of CRC or advanced adenoma (pre-cancer). The current Cologuard screening interval is every 3 years. ([place] [employer] and U.S. Multi-Society Task Force). Cologuard performance data in a 10,000 patient pivotal study using colonoscopy as the reference method can be accessed at the following location: www.Vestec/results. Additional description of the Cologuard test process, warnings and precautions can be found at www.[employer]yst[employer].TAPrd.com. Stool (Stool) 05/06/2025 3:4 0 PM CDT 05/07/2025 9:29 AM CDT Jax Hansen M.D. LAB BODY FLUIDS AND STOOLS ORDERABLES Final Result [facility] [address] [place] [address] [address] [facility], [address] [place] [address] from Last 3 Months Insurance [facility] MEDICARE Care Teams Product Safety Lead Relationship Specialty Start Date End Date Jax Bennett M.B.BИванSИван, MMary Jo. [address] [place] [address] [place]SIUS Joya [phone] PCP - General Family Medicine 01/03/23
[2025-08-05 16:18] VITALS: BP 217/102; PULSE 90; RESP 16; TEMP 37.1; O2SAT 99; BMI 26.6
[2025-08-05 17:24] VITALS: BP 183/104; PULSE 92; RESP 18; O2SAT 98
== END 2025-08-05 17:27 | disposition home or self-care (01) ==
LOC: ED 17:10
PROVIDERS: Emergency Provider Emergency Medicine; PCP Family Medicine
DX: L03.211 Cellulitis of face (principal); K04.7 Periapical abscess without sinus
CPT/HCPCS: 99282; 99283; 99284